=== PATIENT | male | born 1970 | race Caucasian/White ===

== ENCOUNTER 2018-09-08 09:06 | Inpatient (IN) | payer OTHER ==
[2018-09-08 09:22] VITALS: BMI 28.8
--- NOTE | 2018-09-08 09:31 | CT ---
Date of service: 09/08/2018 PROCEDURE: CT HEAD WITHOUT CONTRAST. HISTORY: AMS COMPARISON: None available. TECHNIQUE: Axial computed tomography images were obtained through the head/brain without intravenous contrast. Radiation dose: Total exam DLP = 1098.24 mGy-cm. This CT exam was performed using one or more of the following dose reduction techniques: Automated exposure control, adjustment of the mA and/or kV according to patient size, and/or use of iterative reconstruction technique. FINDINGS: HEMORRHAGE: No intracranial hemorrhage. BRAIN: Normal esteban-white matter differentiation and density are appreciated throughout the cerebrum and cerebellum with the brainstem appearing unremarkable as well. There is no mass effect. There is no suspicious extra-axial fluid collection and the midline brain anatomy appears diffusely unremarkable. VENTRICLES: Unremarkable. No hydrocephalus. CALVARIUM: No destructive bony lesion or displaced fracture identified including through the skullbase. PARANASAL SINUSES: Unremarkable as visualized. No significant inflammatory changes. MASTOID AIR CELLS: Unremarkable as visualized. No inflammatory changes. OTHER FINDINGS: None. IMPRESSION: Unremarkable unenhanced head CT. Findings discussed with Dr. No with written down and read back verification 09/08/2018 9:24 a.m..
[2018-09-08 09:37] LABS: BASO % 0.4 % (0.0-2.0); EOS # 0.1 K/uL (0.0-0.7); EOS % 2.3 % (0.0-4.0); HEMOGLOBIN 15.2 g/dL (12.0-18.0); LYMPH # 2.1 K/uL (1.0-4.3); LYMPH % 37.6 % (20.0-40.0); MEAN CELL VOLUME 85.3 fl (80.0-94.0); MEAN CORPUSCULAR HEMOGLOBIN 30.1 pg (27.0-31.0); MEAN CORPUSCULAR HGB CONC 35.3 g/dL (33.0-37.0); MEAN PLATELET VOLUME 8.2 fl (7.2-11.7); MONO # 0.6 K/uL (0.0-0.8); NEUT # 2.8 K/uL (1.8-7.0); NEUT % 49.7 % (50.0-75.0); NRBC % 0.2 % (0.0-0.0); RBC 5.07 Mil/uL (4.40-5.90); RED CELL DISTRIBUTION WIDTH 12.9 % (11.5-14.5); WHITE BLOOD COUNT 5.7 K/uL (4.8-10.8)
--- NOTE | 2018-09-08 09:41 | ED PDOC ---
HPI:STROKE - Time Time: 09:10 - Historian Historian: Patient, Spouse (), EMS - Chief Complaint Chief Complaint: Arm weakness (Right), other (Difficulty in speech) - Onset Date: 09/08/18 Time: 08:00 (Possibly had when woke up) - Timing Timing: Improved - Location Locate right:: Upper extremity - TPA Positive for Contraindication: No Reason tPA is not being Administered: Quick resolution of symptoms and minor NIH score of 1 and unknown onset - Notes: Notes:: 48 years old male brought in by EMS for possible stroke. Patient report he woke up around 8 am and states he is not sure of he had these complaints but according to him and his he went to the bathroom where he had difficulty in speech and weakness in right arm [employer]. PMD: Jarvis R[place] in [place] NIHSS Stroke Scale - Date/Time Evaluation Performed Date Performed: 09/08/18 Time Performed: 09:10 When Was NIHSS Performed: Code Stroke - How Severe is the Stroke Level of Consciousness: 0=Alert LOC to Questions: 0=Both comments correct LOC to commands: 0=Obeys both correctly Best Gaze: 0=Normal Visual: 0=No visual loss Facial: 0=Normal Motor Arm - Left: 0=No drift Motor Arm - Right: 0=No drift Motor Leg - Left: 0=No drift Motor Leg - Right: 0=No drift Limb Ataxia: 0=Absent Sensory: 0=Normal Best Language: 0=No aphasia Dysarthia: 1=Mild to moderate slurring Extinction & Inattention (Neglect): 0=Normal, no object Score: 1 NIHSS Stroke Scale 2 - Date/Time Evaluation Performed Date Performed: 09/08/18 Time Performed: 12:30 When Was NIHSS Performed: Code Stroke Re-evaluation - How Severe is the Stroke Level of Consciousness: 0=Alert LOC to Questions: 0=Both comments correct LOC to commands: 0=Obeys both correctly Best Gaze: 0=Normal Visual: 0=No visual loss Facial: 0=Normal Motor Arm - Left: 0=No drift Motor Arm - Right: 0=No drift Motor Leg - Left: 0=No drift Motor Leg - Right: 0=No drift Limb Ataxia: 0=Absent Sensory: 0=Normal Best Language: 1=Mild to moderate aphasia Dysarthia: 1=Mild to moderate slurring Extinction & Inattention (Neglect): 0=Normal, no object Score: 2 rTPA Inclusion/Exclusion - Refusal of Treatment Patient Refused Treatment: No - Inclusion Criteria for Altepase Patient is 18 years or Older: No The Clinical Diagnosis of Ischemic Stroke That is Causing a Potentially Disabling Neurological Deficit: No Time of Onset is Well Established to be Less Than 270 Minute Before Treatment Would Begin: No Risk/Benefit Discussed With Patient/Family Member Present: Yes Past Medical History Reviewed: Historical Data, Nursing Documentation, Vital Signs Vital Signs: Last Vital Signs Temp 98.3 F 09/08/18 09:09 Pulse 106 H 09/08/18 09:32 Resp 15 09/08/18 09:32 BP 160/79 H 09/08/18 09:32 Pulse Ox 97 09/08/18 09:32 - Medical History PMH: No Chronic Diseases - Surgical History Surgical History: No Surg Hx - Family History Family History: States: Unknown Family Hx - Home Medications Home Medications: Ambulatory Orders Medication Instructions Recorded RX: No Known Home Med 09/08/18 - Allergies Allergies/Adverse Reactions: Allergies Allergy/AdvReac Type Severity Reaction Status Date / Time No Known Allergies Allergy Verified 09/08/18 09:13 Review of Systems ROS Statement: Except As Marked, All Systems Reviewed And Found Negative Neurological: Positive for: Weakness (to right arm), Change in Speech (difficulty in speech) Physical Exam - Reviewed Nursing Documentation Reviewed: Yes Vital Signs Reviewed: Yes - Physical Exam Appears: Positive for: Well, No Acute Distress Head Exam: Positive for: ATRAUMATIC, NORMOCEPHALIC Skin: Positive for: Normal Color, Warm, Dry Eye Exam: Positive for: Normal appearance, EOMI, PERRL Neck: Positive for: Normal, Painless ROM, Supple Cardiovascular/Chest: Positive for: Regular Rate, Rhythm. Negative for: Murmur Respiratory: Positive for: Normal Breath Sounds. Negative for: Respiratory Distress Gastrointestinal/Abdominal: Positive for: Normal Exam, Soft. Negative for: Tenderness Back: Positive for: Normal Inspection. Negative for: L CVA Tenderness, R CVA Tenderness Extremity: Positive for: Normal ROM. Negative for: Pedal Edema, Swelling Neurologic/Psych: Positive for: Alert, Oriented (x3) - Laboratory Results Result Diagrams: 09/08/18 09:27 09/08/18 09:27 - ECG O2 Sat by Pulse Oximetry: 97 (RA) Pulse Ox Interpretation: Normal - Critical Care Total Time (In Min): 60 Medical Decision Making Medical Decision Making: Time: 914 Initial Impression: Acute CVA. Initial Plan: --Type and screen --CT Angio Head & Neck Vundle --CT Head W/O Contrast --EKg --Alcohol Serum --CMP --Drug screen --Hemoglobin --Lipid panel --Troponin --CBC --PTT --PT --Chest X-Ray --NaCl 1,000 ml IV 100 mls/hr 0925 Dr. Lara, the radiologist, called saying he read the CT and it is negative. 0928 CT Head FINDINGS: HEMORRHAGE: No intracranial hemorrhage. BRAIN: Normal esteban-white matter differentiation and density are appreciated throughout the cerebrum and cerebellum with the brainstem appearing unremarkable as well. There is no mass effect. There is no suspicious extra-axial fluid collection and the midline brain anatomy appears diffusely unremarkable. VENTRICLES: Unremarkable. No hydrocephalus. CALVARIUM: No destructive bony lesion or displaced fracture identified including through the skullbase. PARANASAL SINUSES: Unremarkable as visualized. No significant inflammatory changes. MASTOID AIR CELLS: Unremarkable as visualized. No inflammatory changes. OTHER FINDINGS: None. IMPRESSION: Unremarkable unenhanced head CT. Findings discussed with Dr. No with written down and read back verification 09/08/2018 9:24 a.m. [address] Coronel, neurologist cinder block mason, discussed case, NIH score and CT findings with her. According to Dr. Coronel, patient is not a TPA candidate due to quick resolution of symptoms and minor NIH score of 1. 1212 CT Angio Head and Neck FINDINGS: INTERNAL CEREBRAL ARTERIES: Unremarkable. The skull base, petrous, cavernous and supraclinoid segments are bilaterally widely patent. ANTERIOR CEREBRAL ARTERIES: The right A1 JOSSE appears hypoplastic but patent. The left A1 JOSSE is robust in caliber with good contrast opacification appreciated patent throughout. Anterior communicating artery appears patent with symmetric appearing A2 JOSSE branches bilaterally. MIDDLE CEREBRAL ARTERIES: Unremarkable. M1 and M2 segments are widely patent. Perisylvian branches grossly symmetric. POSTERIOR CIRCULATION: Basilar Artery: Unremarkable. Distal Vertebral Arteries: Unremarkable. Posterior Cerebral Arteries: Unremarkable. Posterior Inferior Cerebellar Arteries: Unremarkable. NECK CTA: Common Carotid arteries: The bilateral common carotid appear widely patent from their origins to their bifurcations with no significant stenosis appreciated. No evidence to suggest common carotid artery dissection. Internal Carotid arteries: No significant stenosis is appreciated throughout the cervical internal carotid artery segments bilaterally and there is no evidence of dissection either. External Carotid arteries: Appear unremarkable bilaterally. Vertebral arteries: The bilateral vertebral arteries appear normal in caliber from their origins to their distal cervical segments. No significant stenosis or definite pattern of dissection. ANEURYSM/ VASCULAR MALFORMATIONS: None. OTHER FINDINGS: None. IMPRESSION: 1. Hypoplastic but patent right A1 JOSSE with bilateral A2 JOSSE segments symmetric and patent. Widely patent dominant left A2 JOSSE. Patent anterior communicating artery. Remainder of the intracranial MR angiogram appears unremarkable with no occlusion or significant stenosis appreciable. 2. Unremarkable CTA neck. 1230 Called code stroke for worsening of dysarthria and mild aphasia. NIH SS is [address] head is ordered. [address] Coronel, she agreed and recommended TPA. 1253 Spoke to Martin, who states the CT is negative. 1254 CT Head FINDINGS: HEMORRHAGE: No acute intracranial hemorrhage. BRAIN: No mass effect or edema. No atrophy or chronic microvascular ischemic changes. VENTRICLES: Unremarkable. No hydrocephalus. CALVARIUM: Unremarkable. PARANASAL SINUSES: Unremarkable as visualized. No significant inflammatory changes. MASTOID AIR CELLS: Unremarkable as visualized. No inflammatory changes. OTHER FINDINGS: None. IMPRESSION: Normal CT of the Head. No evidence of acute CVA. No intracranial mass or hemorrhage. The findings in this examination were discussed by telephone with Dr. Bakari sanches at 12:53 p.m. on 09/08/2018. 1300 TPA was administered as bolus and infusion Scribe Attestation: Documented by Rochelle Chong, acting as a scribe for Ayo No MD. Provider Scribe Attestation: All medical record entries made by the Scribe were at my direction and personally dictated by me. I have reviewed the chart and agree that the record accurately reflects my personal performance of the history, physical exam, medical decision making, and the department course for this patient. I have also personally directed, reviewed, and agree with the discharge instructions and disposition. Disposition - Clinical Impression Clinical Impression: Acute CVA (cerebrovascular accident) - Patient ED Disposition Is Patient to be Admitted: Yes Discussed With Dr.: Maninder Sanders Doctor Will See Patient In The: Hospital Counseled Patient/Family Regarding: Studies Performed, Diagnosis - Disposition Disposition Time: 13:00 Condition: CRITICAL - Pt Status Changed To: Hospital Disposition Of: Inpatient - Admit Certification Admit to Inpatient:: After my assessment, the patient will require hospitalization for at least two midnights. This is because of the severity of symptoms shown, intensity of services needed, and/or the medical risk in this patient being treated as an outpatient. - POA Present On Arrival: None
[2018-09-08 09:44] LABS: PROTHROMBIN TIME 11.9 Seconds (9.8-13.1)
[2018-09-08] MEDS ORDERED: Iodixanol 320 MG/ML 100 ML BOTTLE IV ONE (09:44)
[2018-09-08] MEDS ORDERED: Sodium Chloride 0.9% 50 ML IV ONE (09:44)
[2018-09-08 09:48] LABS: ALB/GLOB RATIO 1.4 (1.0-2.1); ALBUMIN 4.4 g/dL (3.5-5.0); ALT/SGPT 36 U/L (21-72); AST/SGOT 27 U/L (17-59); BLOOD UREA NITROGEN 13 mg/dl (9-20); CALCIUM 9.5 mg/dL (8.4-10.2); GFR NON-AFRICAN AMERICAN > 60; HDL CHOLESTEROL 43 MG/DL (30-70)
[2018-09-08] MEDS: Sodium Chloride 0.9% 1,000 ML IV SCH (09:58)
[2018-09-08 09:59] LABS: LDL CHOLESTEROL 124 mg/dL (0-129)
[2018-09-08 12:14] LABS: BARBITURATES, UR NEGATIVE (NEGATIVE); BENZODIAZEPINES, UR NEGATIVE (NEGATIVE); OPIATES, UR NEGATIVE (NEGATIVE); PHENCYCLIDINE, UR NEGATIVE (NEGATIVE)
--- NOTE | 2018-09-08 12:16 | CT ---
Date of service: 09/08/2018 PROCEDURE: CT Angiography of the Brain. HISTORY: head neck CVA COMPARISON: None available. TECHNIQUE: CT angiography of the head and neck was performed following intravenous contrast administration. Coronal and sagittal maximum intensity projection reformatted images were generated. Contrast Dose: Visipaque 320, 100 cc Radiation dose: Total exam DLP = 515.26 mGy-cm. This CT exam was performed using one or more of the following dose reduction techniques: Automated exposure control, adjustment of the mA and/or kV according to patient size, and/or use of iterative reconstruction technique. FINDINGS: INTERNAL CEREBRAL ARTERIES: Unremarkable. The skull base, petrous, cavernous and supraclinoid segments are bilaterally widely patent. ANTERIOR CEREBRAL ARTERIES: The right A1 JOSSE appears hypoplastic but patent. The left A1 JOSSE is robust in caliber with good contrast opacification appreciated patent throughout. Anterior communicating artery appears patent with symmetric appearing A2 JOSSE branches bilaterally. MIDDLE CEREBRAL ARTERIES: Unremarkable. M1 and M2 segments are widely patent. Perisylvian branches grossly symmetric. POSTERIOR CIRCULATION: Basilar Artery: Unremarkable. Distal Vertebral Arteries: Unremarkable. Posterior Cerebral Arteries: Unremarkable. Posterior Inferior Cerebellar Arteries: Unremarkable. NECK CTA: Common Carotid arteries: The bilateral common carotid appear widely patent from their origins to their bifurcations with no significant stenosis appreciated. No evidence to suggest common carotid artery dissection. Internal Carotid arteries: No significant stenosis is appreciated throughout the cervical internal carotid artery segments bilaterally and there is no evidence of dissection either. External Carotid arteries: Appear unremarkable bilaterally. Vertebral arteries: The bilateral vertebral arteries appear normal in caliber from their origins to their distal cervical segments. No significant stenosis or definite pattern of dissection. ANEURYSM/ VASCULAR MALFORMATIONS: None. OTHER FINDINGS: None. IMPRESSION: 1. Hypoplastic but patent right A1 JOSSE with bilateral A2 JOSSE segments symmetric and patent. Widely patent dominant left A2 JOSSE. Patent anterior communicating artery. Remainder of the intracranial MR angiogram appears unremarkable with no occlusion or significant stenosis appreciable. 2. Unremarkable CTA neck.
--- NOTE | 2018-09-08 12:41 | CP.PCM.PCO ---
Physician Communication Note - Physician Communication Note Physician Communication Note: patient in last 10 minutes with now acute aphasia and dysarthria. TPA
--- NOTE | 2018-09-08 12:57 | CT ---
Date of service: 09/08/2018 PROCEDURE: CT HEAD WITHOUT CONTRAST. HISTORY: CVA COMPARISON: None available. TECHNIQUE: Axial computed tomography images were obtained through the head/brain without intravenous contrast. Radiation dose: Total exam DLP = 1091.85 mGy-cm. This CT exam was performed using one or more of the following dose reduction techniques: Automated exposure control, adjustment of the mA and/or kV according to patient size, and/or use of iterative reconstruction technique. FINDINGS: HEMORRHAGE: No acute intracranial hemorrhage. BRAIN: No mass effect or edema. No atrophy or chronic microvascular ischemic changes. VENTRICLES: Unremarkable. No hydrocephalus. CALVARIUM: Unremarkable. PARANASAL SINUSES: Unremarkable as visualized. No significant inflammatory changes. MASTOID AIR CELLS: Unremarkable as visualized. No inflammatory changes. OTHER FINDINGS: None. IMPRESSION: Normal CT of the Head. No evidence of acute CVA. No intracranial mass or hemorrhage. The findings in this examination were discussed by telephone with Dr. Bakari sanches at 12:53 p.m. on 09/08/2018.
--- NOTE | 2018-09-08 14:43 | CP.PCM.HP ---
<Mehrdad Sawyer - Last Filed: 09/08/18 18:32> History of Present Illness - History of Present Illness History of Present Illness: This is 48 y/o male with no significant PMH admitted to [facility] for evaluation and treatment of Acute Stroke/CVA. As per , patient woke up this morning and walked to bathroom and started c/o weakness and noticed aphasia so she called 911. reports patient was in his usual state of health a night before, no acute event. In ER patient got more Aphasic and dysarthria noted. Patient was started on TPA after counsulted with Dr. Coronel, neurologist. Patient denies any chest pain, SOB, dizziness, abdominal pain, palpitations or dysuria. is reporting right facial drooping. PMH: Denies PSH: No major surgeries Allg: NKDA Meds: none FH: Dad: + Stroke and DM, mother with HTN and DM SH: Denies smoking or illicit drug use, Social Alcohol use ROS: As per HPI Present on Admission - Present on Admission Any Indicators Present on Admission: No Review of Systems - Constitutional Constitutional: absent: Anorexia - EENT Eyes: absent: Blurred Vision, Diplopia, Itchy Eyes, Other Visual Disturbances Ears: absent: Ear Discharge, Disequilibrium, Dizziness Nose/Mouth/Throat: absent: Nasal Congestion, Nasal Discharge - Cardiovascular Cardiovascular: absent: Chest Pain, Chest Pain at Rest, Claudication - Respiratory Respiratory: absent: Cough, Dyspnea, Hemoptysis - Gastrointestinal Gastrointestinal: absent: Abdominal Pain - Genitourinary Genitourinary: absent: Change in Urinary Stream - Neurological Neurological: Focal Weakness. absent: Abnormal Gait, Abnormal Hearing, Abnormal Movements, Burning Sensations, Confusion, Disequilibrium - Psychiatric Psychiatric: absent: Anxiety - Endocrine Endocrine: Change in Body Appearance Past Patient History - Past Social History Smoking Status: Unknown If Ever Smoked - CARDIAC Hx Cardiac Disorders: No - PULMONARY Hx Respiratory Disorders: No - NEUROLOGICAL Hx Neurological Disorder: No - HEENT Hx HEENT Problems: No - RENAL Hx Chronic Kidney Disease: No - ENDOCRINE/METABOLIC Hx Endocrine Disorders: No - HEMATOLOGICAL/ONCOLOGICAL Hx Blood Disorders: No - INTEGUMENTARY Hx Dermatological Problems: Yes - MUSCULOSKELETAL/RHEUMATOLOGICAL Hx Musculoskeletal Disorders: No - GENITOURINARY/GYNECOLOGICAL Hx Genitourinary Disorders: No - PSYCHIATRIC Hx Psychophysiologic Disorder: No - SURGICAL HISTORY Hx Surgeries: No Meds Allergies/Adverse Reactions: Allergies Allergy/AdvReac Type Severity Reaction Status Date / Time No Known Allergies Allergy Verified 09/08/18 09:13 Physical Exam - Constitutional Appears: No Acute Distress - Head Exam Head Exam: NORMAL INSPECTION - Eye Exam Eye Exam: EOMI, Normal appearance, PERRL Pupil Exam: NORMAL ACCOMODATION - ENT Exam ENT Exam: Mucous Membranes Moist - Neck Exam Neck exam: Positive for: Normal Inspection - Respiratory Exam Respiratory Exam: Clear to Auscultation Bilateral, NORMAL BREATHING PATTERN. absent: Rhonchi, Wheezes, Respiratory Distress - Cardiovascular Exam Cardiovascular Exam: REGULAR RHYTHM, +S1, +S2 - GI/Abdominal Exam GI & Abdominal Exam: Normal Bowel Sounds, Soft. absent: Tenderness - Extremities Exam Extremities exam: Positive for: full ROM, normal inspection, pedal pulses present. Negative for: calf tenderness, tenderness - Back Exam Back exam: NORMAL INSPECTION. absent: CVA tenderness (L), CVA tenderness (R) - Expanded Neurological Exam Expanded Patient oriented to: person, place, time Speech: Expressive Aphasia, Slurred Speech Cranial nerves: EOM's Intact: Normal, Facial Sensation: Normal, Gag Reflex: Normal, Nystagmus: Normal, Tongue Deviation: Normal Cerebellar Function: Finger to Nose: Normal Sensory exam: Lower Extremity 2 Point Discrimination: Normal Neuro motor strength exam: Left Upper Extremity: 5, Right Upper Extremity: 5, Left Lower Extremity: 5, Right Lower Extremity: 5 Coma Scale Motor Response: OBEYS COMMANDS Coma Scale Verbal: Oriented - Psychiatric Exam Psychiatric exam: Flat Affect - Skin Skin Exam: Normal Color Results - Vital Signs Recent Vital Signs: Last Vital Signs Temp 98.3 F 09/08/18 09:09 Pulse 110 H 09/08/18 14:30 Resp 20 09/08/18 14:30 BP 146/92 H 09/08/18 14:30 Pulse Ox 98 09/08/18 14:30 - Labs Result Diagrams: 09/08/18 09:27 09/08/18 09:27 Labs: Laboratory Results - last 24 hr 09/08/18 09/08/18 09/08/18 09:13 09:27 09:27 WBC 5.7 RBC 5.07 Hgb 15.2 Hct 43.2 MCV 85.3 MCH 30.1 MCHC 35.3 RDW 12.9 Plt Count 249 MPV 8.2 Neut % (Auto) 49.7 L Lymph % (Auto) 37.6 [place] % (Auto) 10.0 Eos % (Auto) 2.3 Baso % (Auto) 0.4 Neut # (Auto) 2.8 Lymph # (Auto) 2.1 [place] # (Auto) 0.6 Eos # (Auto) 0.1 Baso # (Auto) 0.0 PT INR APTT Sodium 140 Potassium 3.8 Chloride 101 Carbon Dioxide 25 Anion Gap 18 BUN 13 Creatinine 1.1 Est GFR ( Amer) > 60 Est GFR (Non-Af Amer) > 60 POC Glucose (mg/dL) 97 Random Glucose 110 Calcium 9.5 Total Bilirubin 0.7 AST 27 ALT 36 Alkaline Phosphatase 52 Troponin I < 0.0600 Total Protein 7.6 Albumin 4.4 Globulin 3.2 Albumin/Globulin Ratio 1.4 Triglycerides 117 Cholesterol 210 H LDL Cholesterol Direct 124 HDL Cholesterol 43 Urine Opiates Screen Urine Methadone Screen Ur Barbiturates Screen Ur Phencyclidine Scrn Ur Amphetamines Screen U Benzodiazepines Scrn U Oth Cocaine Metabols U Cannabinoids Screen Alcohol, Quantitative < 10 Blood Type Blood Type Confirm Antibody Screen BBK History Checked 09/08/18 09/08/18 09/08/18 09:27 09:27 10:59 WBC RBC Hgb Hct MCV MCH MCHC RDW Plt Count MPV Neut % (Auto) Lymph % (Auto) [place] % (Auto) Eos % (Auto) Baso % (Auto) Neut # (Auto) Lymph # (Auto) [place] # (Auto) Eos # (Auto) Baso # (Auto) PT 11.9 INR 1.0 APTT 34.0 Sodium Potassium Chloride Carbon Dioxide Anion Gap BUN Creatinine Est GFR ( Amer) Est GFR (Non-Af Amer) POC Glucose (mg/dL) Random Glucose Calcium Total Bilirubin AST ALT Alkaline Phosphatase Troponin I Total Protein Albumin Globulin Albumin/Globulin Ratio Triglycerides Cholesterol LDL Cholesterol Direct HDL Cholesterol Urine Opiates Screen Urine Methadone Screen Ur Barbiturates Screen Ur Phencyclidine Scrn Ur Amphetamines Screen U Benzodiazepines Scrn U Oth Cocaine Metabols U Cannabinoids Screen Alcohol, Quantitative Blood Type AB POSITIVE Blood Type Confirm AB POSITIVE Antibody Screen Negative BBK History Checked No verified bt 09/08/18 09/08/18 11:35 12:34 WBC RBC Hgb Hct MCV MCH MCHC RDW Plt Count MPV Neut % (Auto) Lymph % (Auto) [place] % (Auto) Eos % (Auto) Baso % (Auto) Neut # (Auto) Lymph # (Auto) [place] # (Auto) Eos # (Auto) Baso # (Auto) PT INR APTT Sodium Potassium Chloride Carbon Dioxide Anion Gap BUN Creatinine Est GFR ( Amer) Est GFR (Non-Af Amer) POC Glucose (mg/dL) 104 Random Glucose Calcium Total Bilirubin AST ALT Alkaline Phosphatase Troponin I Total Protein Albumin Globulin Albumin/Globulin Ratio Triglycerides Cholesterol LDL Cholesterol Direct HDL Cholesterol Urine Opiates Screen Negative Urine Methadone Screen Negative Ur Barbiturates Screen Negative Ur Phencyclidine Scrn Negative Ur Amphetamines Screen Negative U Benzodiazepines Scrn Negative U Oth Cocaine Metabols Negative U Cannabinoids Screen Negative Alcohol, Quantitative Blood Type Blood Type Confirm Antibody Screen BBK History Checked Assessment & Plan - Assessment and Plan (Free Text) Assessment: A/P: 48 y/o male with no significant PMH admitted to [facility] for evaluation and treatment of Acute Stroke/CVA Acute CVA, Aphasia, Code Stroke - NIHSS: 4 - EKG: Sinus tachy, see official report - Head CT x 2: Unremarkable unenhanced head CT - CT Angio Head and Neck: No acute changes - Consult, neurology - Start TPA - F/u MRA - F/u neuro recommendations - Start Aspirin and Lipitor - Maintain BP 140-160 systolic - AccuChecks - Neurocheks - Repeat CT in 24 hours - Admit to ICU DVT PPX: SCD <Sanders,Maninder K - Last Filed: 09/09/18 19:27> Results - Vital Signs Recent Vital Signs: Last Vital Signs Temp 97.6 F 09/09/18 16:00 Pulse 81 09/09/18 18:00 Resp 16 09/09/18 18:00 BP 119/73 09/09/18 18:00 Pulse Ox 96 09/09/18 18:00 - Labs Result Diagrams: 09/09/18 04:30 09/09/18 04:30 Labs: Laboratory Results - last 24 hr 09/08/18 09/09/18 09/09/18 22:03 04:30 04:30 WBC 5.6 RBC 4.88 Hgb 14.6 Hct 42.4 MCV 86.9 MCH 29.9 MCHC 34.4 RDW 13.0 Plt Count 217 MPV 8.3 Neut % (Auto) 62.0 Lymph % (Auto) 25.8 [place] % (Auto) 9.9 Eos % (Auto) 1.7 Baso % (Auto) 0.6 Neut # (Auto) 3.5 Lymph # (Auto) 1.5 [place] # (Auto) 0.6 Eos # (Auto) 0.1 Baso # (Auto) 0.0 PT INR APTT Sodium 139 Potassium 3.7 Chloride 102 Carbon Dioxide 25 Anion Gap 16 BUN 11 Creatinine 0.9 Est GFR ( Amer) > 60 Est GFR (Non-Af Amer) > 60 POC Glucose (mg/dL) 87 Random Glucose 90 Calcium 8.9 Total Bilirubin 0.6 AST 28 ALT 37 Alkaline Phosphatase 44 Total Protein 6.7 Albumin 3.8 Globulin 2.9 Albumin/Globulin Ratio 1.3 Vitamin B12 TSH 3rd Generation 2.02 09/09/18 09/09/18 09/09/18 04:30 05:19 07:29 WBC RBC Hgb Hct MCV MCH MCHC RDW Plt Count MPV Neut % (Auto) Lymph % (Auto) [place] % (Auto) Eos % (Auto) Baso % (Auto) Neut # (Auto) Lymph # (Auto) [place] # (Auto) Eos # (Auto) Baso # (Auto) PT 13.6 H INR 1.2 APTT 32.5 Sodium Potassium Chloride Carbon Dioxide Anion Gap BUN Creatinine Est GFR ( Amer) Est GFR (Non-Af Amer) POC Glucose (mg/dL) 86 Random Glucose Calcium Total Bilirubin AST ALT Alkaline Phosphatase Total Protein Albumin Globulin Albumin/Globulin Ratio Vitamin B12 354 TSH 3rd Generation 09/09/18 09/09/18 11:06 15:48 WBC RBC Hgb Hct MCV MCH MCHC RDW Plt Count MPV Neut % (Auto) Lymph % (Auto) [place] % (Auto) Eos % (Auto) Baso % (Auto) Neut # (Auto) Lymph # (Auto) [place] # (Auto) Eos # (Auto) Baso # (Auto) PT INR APTT Sodium Potassium Chloride Carbon Dioxide Anion Gap BUN Creatinine Est GFR ( Amer) Est GFR (Non-Af Amer) POC Glucose (mg/dL) 82 87 Random Glucose Calcium Total Bilirubin AST ALT Alkaline Phosphatase Total Protein Albumin Globulin Albumin/Globulin Ratio Vitamin B12 TSH 3rd Generation Assessment & Plan - Assessment and Plan (Free Text) Assessment: Patient was personally seen and examined by me in rounds with residents. Available labs and diagnostic data reviewed. Case, Patient's condition and management plan discussed with residents in rounds. Agree with resident's progress note. Plan: As ordered.
--- NOTE | 2018-09-08 16:20 | RAD ---
Date of service: 09/08/2018 HISTORY: Code Stroke COMPARISON: No prior. FINDINGS: LUNGS: No active pulmonary disease. PLEURA: No significant pleural effusion identified, no pneumothorax apparent. CARDIOVASCULAR: No aortic atherosclerotic calcification present. Normal cardiac size. No pulmonary vascular congestion. OSSEOUS STRUCTURES: No significant abnormalities. VISUALIZED UPPER ABDOMEN: Normal. OTHER FINDINGS: None. IMPRESSION: No acute cardiopulmonary disease appreciated.
--- NOTE | 2018-09-08 17:13 | MRI ---
Date of service: 09/08/2018 PROCEDURE: MRI BRAIN WITHOUT CONTRAST HISTORY: CVA COMPARISON: None available. TECHNIQUE: Multiplanar, multisequence MR images of the brain were obtained without intravenous contrast enhancement. FINDINGS: HEMORRHAGE: None DWI: There is an unusual pattern of restricted diffusion affecting the cortex only of the inferior left frontal parietal junction anteriorly. Punctate areas of restricted diffusion are identified affecting foci at the left frontal lobe and basal ganglia suggestive of small acute or subacute infarcts. BRAIN PARENCHYMA: Subtle increased long TR signal is seen at the cortex of the frontal parietal junction best seen in image 14 series 4, the FLAIR axial sequence which corresponds to diffusion-weighted signal abnormality. This is corroborated by sagittal FLAIR images 162 through 146 series 5. Solitary nonspecific area of punctate white matter signal abnormality is seen at the right frontal lobe superiorly with otherwise normal signal throughout the remainder of the brain including the posterior fossa contents. No mass effect. VENTRICLES: Unremarkable. No hydrocephalus. CRANIUM: Unremarkable. ORBITS: Grossly unremarkable. PARANASAL SINUSES/MASTOIDS: Clear VASCULAR SYSTEM: Skull base flow voids intact. OTHER FINDINGS: None. IMPRESSION: Findings most compatible with limited ischemia involving the left frontal and frontoparietal distribution as discussed above although no mass-effect is appreciated at this time. Clinically correlate further as the unusual gyriform pattern of restricted diffusion at the inferior left frontal parietal junction is unusual and felt to reflect ischemia. Infectious or inflammatory change is the differential diagnosis. Consider follow-up contrast MRI for added characterization.
--- NOTE | 2018-09-08 17:14 | MRI ---
Date of service: 09/08/2018 PROCEDURE: MR Angiography of the neck without contrast HISTORY: CVA COMPARISON: None available. TECHNIQUE: 3D [id number] angiography of the neck was performed. Rotating maximum intensity projection images of the cervical carotid and vertebral arteries were generated. The origins of the common carotid arteries were not visualized, which is a limitation inherent to the non-contrast time of flight technique. FINDINGS: RIGHT CAROTID ARTERIES: Common Carotid Artery: Normal. Carotid Bifurcation: Normal. Internal Carotid Artery:Normal. External Carotid Artery (proximal branches): Normal. LEFT CAROTID ARTERIES: Common Carotid Artery: Normal. Carotid Bifurcation: Normal. Internal Carotid Artery:Normal. External Carotid Artery (proximal branches): Normal. VERTEBRAL ARTERIES: Right Vertebral Artery: Normal. Left Vertebral Artery: Normal. OTHER FINDINGS: None. IMPRESSION: Normal MR Angiography of the neck.
--- NOTE | 2018-09-08 17:16 | MRI ---
Date of service: 09/08/2018 PROCEDURE: Magnetic Resonance Angiography Brain HISTORY: CVA COMPARISON: None available. TECHNIQUE: 3D time of flight MR angiography of the intracranial arteries was performed. Rotating maximum intensity projection images were generated. FINDINGS: INTERNAL CAROTID ARTERIES: Unremarkable. The skull base, petrous, cavernous and supraclinoid segments are bilaterally widely patient. ANTERIOR CEREBRAL ARTERIES: Unremarkable. A1 and A2 segments are widely patent. Smaller distal branches unremarkable, as visualized. MIDDLE CEREBRAL ARTERIES: Unremarkable. M1 and M2 segments are widely patent. Perisylvian branches grossly symmetric. POSTERIOR CIRCULATION: Basilar Artery: Unremarkable. Distal Vertebral Arteries: Right dominant vertebrobasilar circulation. Posterior Cerebral Arteries: Unremarkable. Posterior Inferior Cerebellar Arteries: Unremarkable. ANEURYSM/ VASCULAR MALFORMATIONS: None. OTHER FINDINGS: None. IMPRESSION: Unremarkable MR angiography of the brain.
--- NOTE | 2018-09-08 19:07 | CARD ---
APPROVED REPORT Date of service: 09/08/2018 EKG Measurement Heart [id number] <Conclusion> Sinus tachycardia Incomplete right bundle branch block Possible Inferior infarct, age undetermined Abnormal ECG
[2018-09-09 06:34] LABS: INR 1.2; PROTHROMBIN TIME 13.6 Seconds (9.8-13.1)
[2018-09-09 06:36] LABS: PARTIAL THROMBOPLASTIN TIME 32.5 Seconds (25.6-37.1)
[2018-09-09 06:37] LABS: BASO % 0.6 % (0.0-2.0); EOS # 0.1 K/uL (0.0-0.7); EOS % 1.7 % (0.0-4.0); HEMOGLOBIN 14.6 g/dL (12.0-18.0); LYMPH # 1.5 K/uL (1.0-4.3); LYMPH % 25.8 % (20.0-40.0); MEAN CELL VOLUME 86.9 fl (80.0-94.0); MEAN CORPUSCULAR HEMOGLOBIN 29.9 pg (27.0-31.0); MEAN CORPUSCULAR HGB CONC 34.4 g/dL (33.0-37.0); MEAN PLATELET VOLUME 8.3 fl (7.2-11.7); MONO # 0.6 K/uL (0.0-0.8); MONO % 9.9 % (0.0-10.0); NEUT # 3.5 K/uL (1.8-7.0); NRBC % 0.1 % (0.0-0.0); RBC 4.88 Mil/uL (4.40-5.90); WHITE BLOOD COUNT 5.6 K/uL (4.8-10.8)
[2018-09-09 06:59] LABS: ALB/GLOB RATIO 1.3 (1.0-2.1); ALBUMIN 3.8 g/dL (3.5-5.0); ALT/SGPT 37 U/L (21-72); AST/SGOT 28 U/L (17-59); BLOOD UREA NITROGEN 11 mg/dl (9-20); CALCIUM 8.9 mg/dL (8.4-10.2); GFR NON-AFRICAN AMERICAN > 60
[2018-09-09] MEDS: Sodium Chloride 0.9% 1,000 ML IV SCH ×2 (07:00→09:20)
--- NOTE | 2018-09-09 08:35 | CON ---
DATE: 09/08/2018 CRITICAL CARE CONSULT NOTE LOCATION: The patient in ICU, bed 435. TIME SPENT: 40 minutes. The patient is seen and evaluated at the bedside. Past medical, surgical, social, and family history reviewed. Events in the ER noted and discussed with the ER physician. HISTORY OF PRESENT ILLNESS: A 48-year-old moderately obese male with no significant medical history in the past, only recent visit to [place] a month ago when he felt numbness and tingling of his left arm and left trunk after having had a drink from a local shop. He subsequently recovered and has not been having any difficulty with speech or with mobility. The patient went to bed last night, but this morning, felt heaviness on his right arm and right leg, went to bathroom. While in bathroom, felt dizzy, called , brought to emergency room. In ER, the patient was noted to have slight slurring of speech. Otherwise, unremarkable. Initial CT head was negative. However, during the course, the patient developed progressively worsening dysarthria. In consultation with Neurology, the patient was started on tPA, completed, admitted to ICU for further observation. The patient currently remains alert, awake, follows commands appropriate. Exam is unremarkable except for mild dysarthria. PHYSICAL EXAMINATION: VITAL SIGNS: Temperature 98.3, heart rate 93, blood pressure 145/89, respiratory rate of 20 thoracoabdominal, saturation 100%. HEAD, EYES, EARS, NOSE, AND THROAT: Pupils are reactive. Conjunctivae pink. Sclerae are white. NECK: Supple. Trachea is central. CHEST: Bilateral breath sounds. Clear to auscultation. HEART: Rhythm regular. S1, S2 normal intensity. No S3, S4, or gallop. No audible murmur. ABDOMEN: Bowel sounds present. Soft. Liver and spleen not palpable. Bladder not distended. EXTREMITIES: Without clubbing, cyanosis, or edema. NEUROLOGIC EXAMINATION: No cranial nerve deficit. Mild dysarthria. Mild right facial droop. No sensory impairment. Plantar equivocal. CURRENT MEDICATIONS: Include aspirin 81 mg daily, Lipitor 20 mg p.o. daily, sodium chloride 100 mL/hour. LABORATORY DATA: WBC 5.7, hemoglobin 15.2, hematocrit 43.2, platelet count 249, neutrophils 49.7, lymphocytes 37.6, monocytes 10. PT 11.9, INR 1, PTT 34. SMA-7: Sodium 140, potassium 3.8, chloride 101, CO2 of 25, blood urea nitrogen 13, creatinine 1.1, random glucose of 110, A1c 5.3, calcium 9.5, total bilirubin 0.7, AST 27, ALT 36, alkaline phosphatase 52. Troponin less than 0.06, total protein 7.6, albumin 4.4, triglycerides 117, cholesterol 210, LDL 124, HDL of 43. Urine drug screen negative. Alcohol level less than 10. Initial CT head negative. Repeat CTA head and neck hypoplastic but patent right A1 JOSSE with bilateral A2 JOSSE segments symmetric and patent, widely patent and dominant left A2 JOSSE, patent anterior communicating artery. Remainder of the intracranial MR angiogram appears unremarkable. MRI of brain, subtle increasing long TR signal at the context of the frontoparietal junction, best seen in the image 40. The prior axial which corresponds diffuse weighted signal abnormality, solitary nonspecific area, punctate white matter signal, abnormal at the right frontal lobe superiorly, otherwise, unremarkable. MRA of the head, unremarkable MR angiography of the brain. MRA of the neck, normal angiography of the neck. IMPRESSION: A 48-year-old male with no significant medical history in the past, admitted with recurrent stuttering dysarthria, status post tissue plasminogen activator. Neuro imaging shows diffusion affecting the cortex only of the inferior left frontoparietal junction anteriorly. Punctate areas showed restricted diffusion affecting at the left frontal lobe and basal ganglia, suggest a small acute or subacute infarct. We will closely monitor for hemodynamic stability. Maintain systolic pressure between 140 to 160, maintain blood sugar in 90 to 110. Monitor for any post tissue plasminogen activator complications. Laith Montano MD
--- NOTE | 2018-09-09 11:35 | CP.PCM.CON ---
History of Present Illness - History of Present Illness History of Present Illness: Neurology consult called by Dr. Moreno in ER as code stroke. 48 yr old male who was in his usual state of health until about 830 am when he developed sudden dysarthria, awkwardness and heaviness of right arm, followed by partial aphasia. He resolved partially to NIHSS of 2, and then about 10 am yesterday, he developed progressive aphasia and dysarthria. At this point, it was decided that he was a TPA candidate, and he was given TPA by Dr. Moreno in Er. His symptoms completely resolved after TPA administration, and he was transfer red to ICU. On my examination today, the patient only has minimal dysarthria, with NIHSS of 1. He has no headache, no weakness, no visual difficulties, no other complaints. CT head is thus far negative. MRI Brain shows the following: PMH/PSH: Past history of palpitations at rest, for which he saw compressor service technician and was told that he had ??something wrong with his mitral valve. No dm, no htn, no afib. FH/SH: Works in [email or web address] for [employer]. No tobacco, occasional etoh. All: nkda. On exam: AAOX3. PERRL. Cn 2-12 normal. MMS: 30/30 No facial asymmetry. Speech is mildly dysarthric, with naming and repetition intact. EOMI. motor: strength normal, sensory exam normal. Gait is normal. +2 dtr ul and ll bl. Toes downgoing. No clonus. No cerebellar signs noted. Review of Systems - Constitutional Constitutional: absent: As Per HPI, Anorexia, Chills, Daytime Sleepiness, Excessive Sweating, Fatigue, Fever, Frequent Falls, Headache, Increased Appetite, Lethargy, Malaise, Night Sweats, Snoring, Sleep Apnea, Weight Gain, Weight Loss, Weakness, Other - EENT Eyes: absent: As Per HPI, Blind Spots, Blurred Vision, Change in Vision, Decreased Night Vision, Diplopia, Discharge, Dry Eye, Exophthalmos, Floaters, Irritation, Itchy Eyes, Loss of Peripheral Vision, Pain, Photophobia, Requires Corrective Lenses, Sees Flashes, Spots in Vision, Tunnel Vision, Other Visual Disturbances, Loss of Vision, Other Ears: absent: As Per HPI, Decreased Hearing, Ear Discharge, Ear Pain, Tinnitus, Abnormal Hearing, Disequilibrium, Dizziness, Other Nose/Mouth/Throat: absent: As Per HPI, Epistaxis, Nasal Congestion, Nasal Discharge, Nasal Obstruction, Nasal Trauma, Nose Pain, Post Nasal Drip, Sinus Pain, Sinus Pressure, Bleeding Gums, Change in Voice, Dental Pain, Dry Mouth, Dysphagia, Halitosis, Hoarsness, Lip Swelling, Mouth Lesions, Mouth Pain, Odynophagia, Sore Throat, Throat Swelling, Tongue Swelling, Facial Pain, Neck P ain, Neck Mass, Other - Cardiovascular Cardiovascular: absent: As Per HPI, Acrocyanosis, Chest Pain, Chest Pain at Rest, Chest Pain with Activity, Claudication, Diaphoresis, Dyspnea, Dyspnea on Exertion, Edema, Irregular Heart Rhythm, Pain Radiating to Arm/Neck/Jaw, Leg Edema, Leg Ulcers, Lightheadedness, Orthopnea, Palpitations, Paroxysmal Nocturnal Dyspnea, Pedal Edema, Radiating Pain, Rapid Heart Rate, Slow Heart Rate, Syncope, Other - Respiratory Respiratory: absent: As Per HPI, Cough, Dyspnea, Hemoptysis, Dyspnea on Exertion, Wheezing, Snoring, Stridor, Pain on Inspiration, Chest Congestion, Excessive Mucous Production, Change in Mucous Color, Pain with Coughing, Other - Musculoskeletal Musculoskeletal: absent: As Per HPI, Abnormal Gait, Arthralgias, Atrophy, Back Pain, Deformity, Joint Swelling, Limited Range of Motion, Loss of Height, Muscle Cramps, Muscle Weakness, Myalgias, Neck Pain, Numbness, Radiating Pain into Limb, Stiffness, Tingling, Other - Neurological Neurological: absent: As Per HPI, Abnormal Gait, Abnormal Hearing, Abnormal Movements, Abnormal Speech, Behavioral Changes, Burning Sensations, Confusion, Convulsions, Disequilibrium, Dizziness, Numbness, Focal Weakness, Frequent Falls, Headaches, Lack of Coordination, Loss of Vision, Memory Loss, Paresthesias, Radicular Pain, Restless Legs, Sensory Deficit, Syncope, Tingling, Tremor, Vertigo, Weakness, Other Visual Disturbances, Other Past Patient History - Past Medical History & Family History Past Medical History?: Yes - Past Social History Smoking Status: Never Smoked - CARDIAC Hx Cardiac Disorders: No - PULMONARY Hx Respiratory Disorders: No - NEUROLOGICAL Hx Neurological Disorder: No - HEENT Hx HEENT Problems: No - RENAL Hx Chronic Kidney Disease: No - ENDOCRINE/METABOLIC Hx Endocrine Disorders: No - HEMATOLOGICAL/ONCOLOGICAL Hx Blood Disorders: No - INTEGUMENTARY Hx Dermatological Problems: Yes Other/Comment: hx of cancerous moles, pt has received light therapy over the last 3 or 4 years - MUSCULOSKELETAL/RHEUMATOLOGICAL Hx Musculoskeletal Disorders: No Hx Falls: No - GASTROINTESTINAL Hx Gastrointestinal Disorders: No - GENITOURINARY/GYNECOLOGICAL Hx Genitourinary Disorders: No - PSYCHIATRIC Hx Psychophysiologic Disorder: No Hx Substance Use: No - SURGICAL HISTORY Hx Surgeries: Yes Other/Comment: left elbow repair with hardware, then hardware was removed - ANESTHESIA Hx Anesthesia: Yes Hx Anesthesia Reactions: No Hx Malignant Hyperthermia: No Meds Allergies/Adverse Reactions: Allergies Allergy/AdvReac Type Severity Reaction Status Date / Time No Known Allergies Allergy Verified 09/08/18 09:13 - Medications Medications: Current Medications Acetaminophen (Tylenol 325mg Tab) 650 mg PO Q6H PRN PRN Reason: Fever >100.4 F Aspirin (Ecotrin) 81 mg PO DAILY [facility] Last Admin: 09/09/18 09:19 Dose: 81 mg Atorvastatin Calcium (Lipitor) 20 mg PO DAILY [facility] Last Admin: 09/09/18 09:19 Dose: 20 mg Sodium Chloride (Sodium Chloride 0.9%) 1,000 mls @ 100 mls/hr IV .Q10H [facility] Last Admin: 09/09/18 09:20 Dose: 100 mls/hr Ondansetron HCl (Zofran Inj) 4 mg IVP Q6H PRN PRN Reason: Nausea/Vomiting Physical Exam - Constitutional Appears: Non-toxic Results - Vital Signs Recent Vital Signs: Last Vital Signs Temp 98.1 F 09/09/18 08:00 Pulse 80 09/09/18 08:00 Resp 16 09/09/18 08:00 BP 123/83 09/09/18 08:00 Pulse Ox 95 09/09/18 08:00 - Labs Result Diagrams: 09/09/18 04:30 09/09/18 04:30 Labs: Laboratory Results - last 24 hr 09/08/18 09/08/18 09/08/18 09:27 10:59 11:35 WBC RBC Hgb Hct MCV MCH MCHC RDW Plt Count MPV Neut % (Auto) Lymph % (Auto) Cascade % (Auto) Eos % (Auto) Baso % (Auto) Neut # (Auto) Lymph # (Auto) Cascade # (Auto) Eos # (Auto) Baso # (Auto) PT INR APTT Sodium Potassium Chloride Carbon Dioxide Anion Gap BUN Creatinine Est GFR ( Amer) Est GFR (Non-Af Amer) POC Glucose (mg/dL) Random Glucose Hemoglobin A1c 5.3 Calcium Total Bilirubin AST ALT Alkaline Phosphatase Total Protein Albumin Globulin Albumin/Globulin Ratio Vitamin B12 TSH 3rd Generation Urine Opiates Screen Negative Urine Methadone Screen Negative Ur Barbiturates Screen Negative Ur Phencyclidine Scrn Negative Ur Amphetamines Screen Negative U Benzodiazepines Scrn Negative U Oth Cocaine Metabols Negative U Cannabinoids Screen Negative Blood Type Confirm AB POSITIVE 09/08/18 09/08/18 09/09/18 12:34 22:03 04:30 WBC 5.6 RBC 4.88 Hgb 14.6 Hct 42.4 MCV 86.9 MCH 29.9 MCHC 34.4 RDW 13.0 Plt Count 217 MPV 8.3 Neut % (Auto) 62.0 Lymph % (Auto) 25.8 Cascade % (Auto) 9.9 Eos % (Auto) 1.7 Baso % (Auto) 0.6 Neut # (Auto) 3.5 Lymph # (Auto) 1.5 Cascade # (Auto) 0.6 Eos # (Auto) 0.1 Baso # (Auto) 0.0 PT INR APTT Sodium Potassium Chloride Carbon Dioxide Anion Gap BUN Creatinine Est GFR ( Amer) Est GFR (Non-Af Amer) POC Glucose (mg/dL) 104 87 Random Glucose Hemoglobin A1c Calcium Total Bilirubin AST ALT Alkaline Phosphatase Total Protein Albumin Globulin Albumin/Globulin Ratio Vitamin B12 TSH 3rd Generation Urine Opiates Screen Urine Methadone Screen Ur Barbiturates Screen Ur Phencyclidine Scrn Ur Amphetamines Screen U Benzodiazepines Scrn U Oth Cocaine Metabols U Cannabinoids Screen Blood Type Confirm 09/09/18 09/09/18 09/09/18 04:30 04:30 05:19 WBC RBC Hgb Hct MCV MCH MCHC RDW Plt Count MPV Neut % (Auto) Lymph % (Auto) Cascade % (Auto) Eos % (Auto) Baso % (Auto) Neut # (Auto) Lymph # (Auto) Cascade # (Auto) Eos # (Auto) Baso # (Auto) PT 13.6 H INR 1.2 APTT 32.5 Sodium 139 Potassium 3.7 Chloride 102 Carbon Dioxide 25 Anion Gap 16 BUN 11 Creatinine 0.9 Est GFR ( Amer) > 60 Est GFR (Non-Af Amer) > 60 POC Glucose (mg/dL) 86 Random Glucose 90 Hemoglobin A1c Calcium 8.9 Total Bilirubin 0.6 AST 28 ALT 37 Alkaline Phosphatase 44 Total Protein 6.7 Albumin 3.8 Globulin 2.9 Albumin/Globulin Ratio 1.3 Vitamin B12 TSH 3rd Generation 2.02 Urine Opiates Screen Urine Methadone Screen Ur Barbiturates Screen Ur Phencyclidine Scrn Ur Amphetamines Screen U Benzodiazepines Scrn U Oth Cocaine Metabols U Cannabinoids Screen Blood Type Confirm 09/09/18 07:29 WBC RBC Hgb Hct MCV MCH MCHC RDW Plt Count MPV Neut % (Auto) Lymph % (Auto) Cascade % (Auto) Eos % (Auto) Baso % (Auto) Neut # (Auto) Lymph # (Auto) Cascade # (Auto) Eos # (Auto) Baso # (Auto) PT INR APTT Sodium Potassium Chloride Carbon Dioxide Anion Gap BUN Creatinine Est GFR ( Amer) Est GFR (Non-Af Amer) POC Glucose (mg/dL) Random Glucose Hemoglobin A1c Calcium Total Bilirubin AST ALT Alkaline Phosphatase Total Protein Albumin Globulin Albumin/Globulin Ratio Vitamin B12 354 TSH 3rd Generation Urine Opiates Screen Urine Methadone Screen Ur Barbiturates Screen Ur Phencyclidine Scrn Ur Amphetamines Screen U Benzodiazepines Scrn U Oth Cocaine Metabols U Cannabinoids Screen Blood Type Confirm - Imaging and Cardiology CT scan - head Status: Image reviewed by me, Report reviewed by me MRI - head Status: Image reviewed by me, Report reviewed by me (MRI Brain: shows subacute and acute infarcts in the left frontal lobe and basal ganglia. ) Additional comment: MRI brain shows multiple small infarcts in the left frontal lobe and basal ganglia. No hemorrhagic conversion noted. 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 We will admit MR. Watkins and initiate stroke workup. Plan; 1. Echo with bubble study 2. Start aspirin 325 mg po daily, and plavix 75 mg po daily in 36 hours. 3. factor 5 leiden, anti thrombin 3, fibringogen, protein c, protein s, h omocysteine, 4. Keep Bp at around 150-160/80 5. Neuro checks q [address] OT. Thank you Dr. Enrike Arnold MD DPN [facility]
--- NOTE | 2018-09-09 11:50 | PN ---
DATE: 09/09/2018 SUBJECTIVE: The patient seen and examined. Interim events noted. Consults noted and appreciated. Associate Professor Of Art History and Neurology intervention noted and appreciated. The patient remains in the Intensive Care Unit. The patient feels much better. . Normal speech and strength. No complaints of chest pain or shortness of breath. No weakness. PHYSICAL EXAMINATION: GENERAL: The patient is in no acute distress. VITAL SIGNS: Stable. HEART: S1 and S2. Normal and regular. LUNGS: Bilateral air exchange. ABDOMEN: Soft, nontender. EXTREMITIES: No edema. No calf tenderness. No acute ischemia. CENTRAL NERVOUS SYSTEM: The patient is alert, awake, and oriented x3. There is no sign of any acute gross focal motor or sensory neurological deficit. The patient's speech is unremarkable, improved and back to normal. ASSESSMENT: Overall, the patient is medically stable, has improved remarkably after TPA. Available diagnostic data reviewed. Telemetry monitoring does not reveal significant arrhythmia. The MRI is suggestive of acute cerebrovascular accident. MRA is unremarkable. PLAN: As ordered. Maninder Sanders MD
[2018-09-09] MEDS ORDERED: Sodium Chloride 0.9% 50 ML IV ONE (13:29)
[2018-09-09] MEDS ORDERED: Iodixanol 320 MG/ML 100 ML BOTTLE IV ONE (13:30)
--- NOTE | 2018-09-09 16:43 | PN ---
PROCEDURE DATE: 09/09/2018 LOCATION: The patient in ICU bed 435. TIME SPENT: 35 minutes. The patient is seen and evaluated at the bedside. Past medical, surgical, social history reviewed. SUBJECTIVE: This 48-year-old male with no significant medical history in the past presented with recurrent slurring of speech, status post tPA, admitted to ICU, overnight normotensive, afebrile. Telemetry sinus rhythm, weakness and slurring of speech improved. This morning alert, awake, follows commands appropriate, has no headache, shortness of breath, chest pain or palpitation. No abdominal discomfort. No diarrhea, no dysuria. Able to swallow food without signs and symptoms of aspiration. PHYSICAL EXAMINATION: VITAL SIGNS: Temperature 98.1, heart rate 80 and regular, blood pressure 123/83, mean arterial pressure 96, oxygen saturation 95. HEAD, EYES, EARS, NOSE AND THROAT: Pupils are reactive. Conjunctivae pink. Sclerae are white. NECK: Supple. Trachea central. CHEST: Bilateral breath sounds, clear to auscultation. HEART: Rhythm regular. S1, S2 normal. No S3, S4 gallop. No audible murmur. ABDOMEN: Bowel sounds present. Soft. Liver and spleen not palpable. Bladder not distended. EXTREMITIES: No clubbing, cyanosis or edema. NEUROLOGIC: No cranial nerve deficit, very minimal slurring of speech. No facial droop. No motor deficit. No sensory impairment. CURRENT MEDICATIONS: Aspirin 81 mg daily, Lipitor 20 mg p.o. daily Tylenol 650 every 6 hours p.r.n. LABORATORY DATA: WBC 5.6, hemoglobin 14.6, hematocrit 42.4, platelet count of 270, neutrophils 62, lymphocytes 25.8, monocytes 9.8. PT 13.6, INR 1.2, PTT 32.5. SMA-7: Sodium 139, potassium 3.7, chloride 102, CO2 of 25. Blood urea nitrogen 11, creatinine of 0.9, random glucose 90, calcium 8.9, total bilirubin 0.6, AST 28, ALT 37, alkaline phosphatase 44, total protein 6.7, albumin 3.8. Vitamin B12 of 354. TSH of 2.02. Alcohol level less than 10. Urine tox screen negative. MRI of brain, punctate areas of restricted diffusion identified among foci at the left frontal lobe and basal ganglia, suggestive of small acute or a subacute infarct. IMPRESSION: Status post acute cerebrovascular accident, status post tPA. Post-tPA course uneventful. Symptoms at presentation slurring and weakness of the right arm improved, minimal residual slurring of speech. Seen by Neurology consult. Awaiting for repeat CT scan of the head and echo with bubble study. We will advance the diet to heart healthy and continue aspirin 81 mg daily, Lipitor 20 mg daily. To be evaluated by speech therapist for further evaluation and management. Laith Montano MD
--- NOTE | 2018-09-09 16:59 | CT ---
Date of service: 09/09/2018 PROCEDURE: CT HEAD WITH AND WITHOUT CONTRAST HISTORY: cva COMPARISON: Head CT without contrast 09/08/2018. TECHNIQUE: Axial computed tomography images were obtained through the head/brain with and without intravenous contrast enhancement. Contrast dose: Omnipaque 300, 99 cc Radiation dose: Total exam DLP = 1789.5 mGy-cm. This CT exam was performed using one or more of the following dose reduction techniques: Automated exposure control, adjustment of the mA and/or kV according to patient size, and/or use of iterative reconstruction technique. FINDINGS: HEMORRHAGE: No intracranial hemorrhage. BRAIN: Normal esteban-white matter differentiation and density are appreciated throughout the cerebrum and cerebellum with the brainstem appearing unremarkable as well. There is no mass effect. There is no suspicious extra-axial fluid collection and the midline brain anatomy appears diffusely unremarkable. No interval change compared prior head CT dated 09/08/2018. No abnormal intracranial enhancement appreciated above or below the tentorium including the brainstem. VENTRICLES: Unremarkable. No hydrocephalus. CALVARIUM: Unremarkable. SINUSES: Unremarkable as visualized. No significant inflammatory changes. MASTOID AIR CELLS: Unremarkable as visualized. No mastoid effusion. OTHER FINDINGS: None. IMPRESSION: Normal pre and post contrast enhanced CT of the head. Stable unenhanced CT prior to intravenous contrast compared to 09/08/2018 CT..
--- NOTE | 2018-09-09 22:01 | CP.PCM.PN ---
Subjective - Date & Time of Evaluation Date of Evaluation: 09/09/18 Time of Evaluation: 11:00 - Subjective Subjective: Patient is doing well today, with improving language, and dysarthria no resolved. No headache, no numbness, no tingling, no aphasia, no apraxia. NIH stroke scale 0. S/p TPA day 1. ON exam: AAOX3. PERRL. Cn 2-12 normal. MMS: 30/30 No facial asymmetry. Speech is normal. no aphasia or dysarthria. EOMI. motor: strength normal, sensory exam normal. Gait is normal. +2 dtr ul and ll bl. Toes downgoing. No clonus. No cerebellar signs noted. Objective - Vital Signs/Intake and Output Vital Signs (last 24 hours): Temp Pulse Resp BP Pulse Ox 97.6 F 80 14 139/84 96 09/09/18 21:53 09/09/18 21:53 09/09/18 21:53 09/09/18 21:53 09/09/18 21:53 Intake and Output: 09/09/18 09/10/18 18:59 06:59 Intake Total 600 Balance 600 - Medications Medications: Current Medications Acetaminophen (Tylenol 325mg Tab) 650 mg PO Q6H PRN PRN Reason: Fever >100.4 F Aspirin (Ecotrin) 81 mg PO DAILY [facility] Last Admin: 09/09/18 09:19 Dose: 81 mg Atorvastatin Calcium (Lipitor) 20 mg PO DAILY [facility] Last Admin: 09/09/18 09:19 Dose: 20 mg Sodium Chloride (Sodium Chloride 0.9%) 1,000 mls @ 100 mls/hr IV .Q10H [facility] Last Admin: 09/09/18 09:20 Dose: 100 mls/hr Ondansetron HCl (Zofran Inj) 4 mg IVP Q6H PRN PRN Reason: Nausea/Vomiting - Labs Labs: 09/09/18 04:30 09/09/18 04:30 PT 13.6 Seconds (9.8-13.1) H 09/09/18 04:30 INR 1.2 09/09/18 04:30 APTT 32.5 Seconds (25.6-37.1) 09/09/18 04:30 Assessment and Plan - Assessment and Plan (Free Text) Assessment: 48 yr old male s/p tpa who is now doing well with resolved deficits and embolic strokes. Plan; 1. Echo bubble study 2. Start aspirin 3. PT ST OT. dr. key
[2018-09-10] MEDS: Sodium Chloride 0.9% 1,000 ML IV SCH
[2018-09-10 06:24] LABS: HEMOGLOBIN 14.4 g/dL (12.0-18.0); MEAN CELL VOLUME 86.5 fl (80.0-94.0); MEAN CORPUSCULAR HEMOGLOBIN 29.9 pg (27.0-31.0); MEAN CORPUSCULAR HGB CONC 34.5 g/dL (33.0-37.0); RBC 4.81 Mil/uL (4.40-5.90); RED CELL DISTRIBUTION WIDTH 12.9 % (11.5-14.5); WHITE BLOOD COUNT 5.3 K/uL (4.8-10.8)
[2018-09-10 06:44] LABS: ALB/GLOB RATIO 1.2 (1.0-2.1); ALBUMIN 3.7 g/dL (3.5-5.0); ALT/SGPT 28 U/L (21-72); AST/SGOT 21 U/L (17-59); BLOOD UREA NITROGEN 11 mg/dl (9-20); CALCIUM 8.8 mg/dL (8.4-10.2); GFR NON-AFRICAN AMERICAN > 60
--- NOTE | 2018-09-10 11:23 | PN ---
DATE: 09/10/2018 CRITICAL CARE PROGRESS NOTE LOCATION: Patient in ICU, bed 435. TIME SPENT: 25 minutes. SUBJECTIVE: The patient is seen, evaluated at the bedside. Past medical, surgical, family and social history reviewed. A 48-year-old male, no significant medical history in the past, admitted with slurring of speech and weakness of right arm, status post tPA. Overnight normotensive, afebrile. Telemetry sinus rhythm. This morning, alert, awake, follows commands appropriate. Able to swallow without signs, symptoms of aspiration. PHYSICAL EXAMINATION: VITAL SIGNS: Temperature 97.8, heart rate 80 regular, blood pressure 135/91 over 117/74, respiratory rate 12, thoracoabdominal, saturation 96% on room air. Intake 1600, output 500, positive balance 1100. Weight of 207 pounds. HEAD, EYES, EARS, NOSE, AND THROAT: Pupils are reactive. Conjunctivae pink. Sclerae white. NECK: Supple. Trachea is central. CHEST: Bilateral breath sounds. Clear to auscultation. HEART: Rhythm regular. S1, S2 normal intensity. No S3, S4 gallop. No audible murmur. ABDOMEN: Bowel sounds are present. Soft. Liver and spleen not palpable. Bladder not distended. EXTREMITIES: No clubbing, cyanosis or edema. NEUROLOGIC: Nonfocal. No motor deficit, no facial droop. Speech improved, mild garbling still present. LABORATORY DATA: WBC 5.3, hemoglobin 14.4, hematocrit 41.6, platelet count 205. SMA-7: Sodium 136, potassium 4, chloride 103, CO2 26, blood urea nitrogen 11, creatinine 0.9, random glucose 90, calcium 8.8, total bilirubin 0.5, AST 21, ALT 28, alkaline phosphatase 37, total protein 6.7, albumin 3.7. Vitamin B12 354. Urine drug screen negative. Microbiology, none reported. Head CT repeated on 09/09/2018 post tPA, normal pre and post contrast enhanced CT of head. Echocardiogram report pending. CURRENT MEDICATIONS: Aspirin 81 mg daily, Lipitor 20 mg daily, Tylenol 650 every 6 hours p.r.n. IMPRESSION: Status post acute cerebrovascular accident status post tPA; post tPA, course uneventful. Symptoms at presentation with slurring and weakness of the right arm improved, minimal residual slurring of speech. Repeat CT head report normal, echo with bubble study pending. We will continue aspirin, Lipitor, and speech therapy followup. The patient can be transferred to regular floor and further followup with the echo report and neurology followup. Laith Montano MD
--- NOTE | 2018-09-10 11:33 | PN ---
DATE: 09/10/2018 SUBJECTIVE: The patient is seen and examined. Interim events noted. Consults noted and appreciated. Exhibition Designer and Neurology interventions noted and appreciated. The patient remains in the intensive care unit. Feels okay. No new complaints of chest pain or shortness of breath, was able to stand up on his own and go to chair without any unsteadiness or fall. Speech has returned to almost normal. PHYSICAL EXAMINATION: GENERAL: The patient is in no acute distress. VITAL SIGNS: Stable. HEART: S1 and S2 normal and regular. LUNGS: Good bilateral air exchange. ABDOMEN: Soft and nontender. EXTREMITIES: No edema. No calf swelling. No tenderness. No acute ischemia. CENTRAL NERVOUS SYSTEM: Essentially unchanged. The patient has almost returned to his baseline status. DIAGNOSTIC DATA: Available diagnostic data reviewed. CAT scan is unremarkable. Telemetry monitoring does not show significant arrhythmias. ASSESSMENT AND PLAN: Overall, the patient's general medical condition is stable. Plan as ordered. Maninder Sanders MD
[2018-09-11 05:20] LABS: HEMOGLOBIN 14.8 g/dL (12.0-18.0); MEAN CELL VOLUME 86.1 fl (80.0-94.0); MEAN CORPUSCULAR HGB CONC 34.9 g/dL (33.0-37.0); RBC 4.94 Mil/uL (4.40-5.90); RED CELL DISTRIBUTION WIDTH 12.6 % (11.5-14.5); WHITE BLOOD COUNT 6.1 K/uL (4.8-10.8)
[2018-09-11 05:42] LABS: ALB/GLOB RATIO 1.4 (1.0-2.1); ALT/SGPT 34 U/L (21-72); AST/SGOT 22 U/L (17-59); BLOOD UREA NITROGEN 12 mg/dl (9-20); CALCIUM 9.3 mg/dL (8.4-10.2); GFR NON-AFRICAN AMERICAN > 60
--- NOTE | 2018-09-11 10:47 | PCM.STROKE ---
Interval History Stroke Date: 09/08/18 No other interval changes in current, PMHx, FHx, SocHx, ROS: other than on note by: (initial neuro consultation note) - Treatment DVT Prophylaxis: Sequential compression device in place bilaterally Antiplatelet: Acetylsalicylic acid (ASA), Plavix Statin: Atrovastatin - Education Written Stroke Education provided regarding: personal risk factors, stroke warning sign/symptoms, how to activate emergency medical services, need to follow up after discharge Hx Atrial Fibrillation: No Hx Atrial Flutter: No - Therapy Notes I have reviewed care of the patient with: Dr. Villafana NIHSS Stroke Scale - Date/Time Evaluation Performed Date Performed: 09/11/18 Time Performed: 11:42 When Was NIHSS Performed: Re-evaluation - How Severe is the Stroke Level of Consciousness: 0=Alert LOC to Questions: 0=Both comments correct LOC to commands: 0=Obeys both correctly Best Gaze: 0=Normal Visual: 0=No visual loss Facial: 0=Normal Motor Arm - Left: 0=No drift Motor Arm - Right: 0=No drift Motor Leg - Left: 0=No drift Motor Leg - Right: 0=No drift Limb Ataxia: 0=Absent Sensory: 0=Normal Best Language: 0=No aphasia Dysarthia: 0=Normal articulation Extinction & Inattention (Neglect): 0=Normal, no object Score: 0 Exam - Vital Sign Vital Signs: Temp Pulse Resp BP Pulse Ox 97.2 F L 65 20 142/80 98 09/11/18 08:36 09/11/18 08:51 09/11/18 08:36 09/11/18 08:36 09/11/18 08:36 Constitutional: No distress Ophthalmoscopic: absent: papilledema, hemorrhage Right Pupil: Reactive Right Pupil Size (in mm): 3 Left Pupil: Reactive Left Pupil Size (in mm): 3 Cardiovascular: Regular rate & rhythm Mental Status: Normal: Orientation, Memory, Attention, Language, Fund of Knowledge Cranial Nerve: Normal: Visual Hoff, Extraocular movement intact, Facial Sensation, Facial Strength, Hearing, Palate/Tongue Movement, Shoulder Strength Motor: Tone, Bulk Neuro motor strength exam: Left Upper Extremity: 5, Right Upper Extremity: 5, Left Lower Extremity: 5, Right Lower Extremity: 5 Sensation: Intact to pin, Vibration DTR: Patellar Left: 1+, Patellar Right: 1+ Flexor Plantar Reflex: Normal Coordination: Finger/nose Vascular Risk: Lipids, Activity, Dietary - Data reviewed Laboratory results: 09/11/18 04:20 09/11/18 04:20 Triglycerides 117 mg/DL (0-149) 09/08/18 09:27 Cholesterol 210 mg/dL (0-199) H 09/08/18 09:27 LDL Cholesterol Direct 124 mg/dL (0-129) 09/08/18 09:27 HDL Cholesterol 43 MG/DL (30-70) 09/08/18 09:27 Hemoglobin A1c 5.3 % (4.2-6.5) 09/09/18 04:30 Echo: pending echo with bubble results Assessment and Plan (1) Acute CVA (cerebrovascular accident) Assessment & Plan: Imaging reviewed: -Brain MRI (09/08/18): Findings most compatible with limited ischemia involving the left frontal and frontoparietal distribution as discussed above although no mass-effect is appreciated at this time. Clinically correlate further as the unusual gyriform pattern of restricted diffusion at the inferior left frontal parietal junction is unusual and felt to reflect ischemia. Infectious or inflammatory change is the differential diagnosis. Consider follow-up contrast MRI for added characterization. -CTs of Head, CTA head and neck, MRA head and neck all reviewed. -Pending ECHO with bubble official results; poss PFO per nursing report from ECHO department this morning--will f/u. -Cardiology consult ordered. -MARIBELL ordered; to be done if Dr. Alvarez is in agreement--will f/u. -Continue ASA, Plavix, Statin -PT/OT/ST for stroke protocol -Notify neuro team of any acute changes in pt's condition. Case discussed with Dr. Villafana Status: Acute
--- NOTE | 2018-09-11 12:00 | PN ---
DATE: 09/11/2018 SUBJECTIVE: The patient seen and examined. Interim events noted. The patient remains in progressive care unit on telemetry monitoring. Denies any specific complaint. No chest pain. No shortness of breath. Speech has returned to almost normal. PHYSICAL EXAMINATION: GENERAL: The patient is in no acute distress. VITAL SIGNS: Stable. HEART: S1 and S2 normal and regular. LUNGS: Good bilateral air exchange. ABDOMEN: Soft, nontender. EXTREMITIES: No edema, no calf swelling, no tenderness, no acute ischemia. CENTRAL NERVOUS SYSTEM: Exam is essentially unchanged. DIAGNOSTIC DATA: Available diagnostic data reviewed. Telemetry monitoring does not show significant arrhythmias. ASSESSMENT AND PLAN: Overall, the patient's general medical condition is stable and improving. Physical therapy evaluation is pending. Plan as ordered. Maninder Sanders MD
--- NOTE | 2018-09-11 20:02 | CARD ---
APPROVED REPORT Date of service: 09/09/2018 EXAM: Two-dimensional and M-mode echocardiogram with Doppler and color Doppler. Other Information Quality : AverageRhythm : NSR INDICATION CVA/TIA Echo Enhancing Agent Indication: Rule Out Septal Defect Agent/Amount Used: Agitated Saline 2D DIMENSIONS IVSd1.23 (0.7-1.1cm)LVDd4.00 (3.9-5.9cm) LVOT Diameter2.05 (1.8-2.4cm)PWd1.40 (0.7-1.1cm) IVSs1.62 (0.8-1.2cm)LA Igkoji46 (18-58mL) LVDs2.78 (2.5-4.0cm)FS (%) 30.4 % PWs1.67 (0.8-1.2cm)SV55.28 ml LVEF (%)62.7 (>50%)CO4.81 L/min M-Mode DIMENSIONS Left Atrium (MM)3.90 (2.5-4.0cm)Aortic Root3.00 (2.2-3.7cm) Aortic Valve AoV Peak Tsephpda468.7cm/sAoV VTI23.3cmAO Peak GR.6mmHg LVOT Peak Itkobwez843.9cm/sLVOT VTI21.68cmAO Mean GR.3mmHg LEYLA (VMAX)1.70xz9YBK (VTI)1.44cm2 Mitral Valve MV E Qtdujxrm42.7cm/sMV E Peak Gr.28mmHgMV DECEL CARN130oa MV A Csbiqwrz70.3cm/sMV IYP41oxI/A ratio0.7 MVA (PHT)4.21cm2 TDI Lateral E' Peak V8.96cm/sMedial E' Peak V8.15cm/sE/Lateral E'6.8 E/Medial E'7.4 Pulmonary Valve RVOT VTI13.2cm Tricuspid Valve TR Peak Hkiuhzjr008gw/sTR Peak Gr.14mmHg LEFT VENTRICLE The left ventricle is normal size. There is normal left ventricular wall thickness. The left ventricular systolic function is normal. The estimated ejection fraction is 60-65% No regional wall motion abnormalities noted.. Transmitral Doppler flow pattern is Grade I-abnormal relaxation pattern. No left ventricle thrombus noted on this study. There is no ventricular septal defect visualized. There is no left ventricular aneurysm. There is no mass noted in the left ventricle. RIGHT VENTRICLE The right ventricle is normal size. There is normal right ventricular wall thickness. The right ventricular systolic function is normal. ATRIA The left atrium is mildly dilated. The right atrium size is normal. The interatrial septum has PFO or small ASD and was evident on bubble study. AORTIC VALVE The aortic valve is normal in structure. Trace aortic regurgitation is present. There is no aortic valvular stenosis. There is no aortic valvular vegetation. MITRAL VALVE The mitral valve is normal in structure. There is no evidence of mitral valve prolapse. There is no mitral valve stenosis. There is trace mitral valve regurgitation noted. TRICUSPID VALVE The tricuspid valve is normal in structure. There is trace tricuspid valve regurgitation noted. RVSP is calculated at 26 mm Hg. There is no tricuspid valve prolapse or vegetation. There is no tricuspid valve stenosis. PULMONIC VALVE The pulmonary valve is normal in structure. There is trace pulmonic valvular regurgitation. There is no pulmonic valvular stenosis. GREAT VESSELS The aortic root is mildly dilated. The ascending aorta is normal in size. The pulmonary artery is normal. The IVC is normal in size and collapses >50% with inspiration. PERICARDIAL EFFUSION There is no pericardial effusion. There is no pleural effusion. <Conclusion> The estimated ejection fraction is 60-65% Transmitral Doppler flow pattern is Grade I-abnormal relaxation pattern. The left atrium is mildly dilated. The interatrial septum has PFO or small ASD and was evident on bubble study. Consider further workup as indicated. There is trace tricuspid valve regurgitation noted. RVSP is calculated at 26 mm Hg. The aortic root is mildly dilated.
--- NOTE | 2018-09-12 07:38 | CP.PCM.PN ---
<Mehrdad Sawyer - Last Filed: 09/12/18 07:50> Subjective - Date & Time of Evaluation Date of Evaluation: 09/12/18 Time of Evaluation: 07:33 - Subjective Subjective: Patient seen and examined this morning at bedside with Dr. Sanders. MAGGIE, s/p TPA day 4, NIHSS 0, denies any headache, weakness/numbness/tingling, blurred vision, aphasia or dysarthria. ECHO: positive PFO vs ASD Possible MARIBELL as per Dr. Alvarez Objective - Vital Signs/Intake and Output Vital Signs (last 24 hours): Temp Pulse Resp BP Pulse Ox 98.3 F 77 18 122/74 94 L 09/12/18 05:00 09/12/18 05:00 09/12/18 05:00 09/12/18 05:00 09/12/18 05:00 - Medications Medications: Current Medications Acetaminophen (Tylenol 325mg Tab) 650 mg PO Q6H PRN PRN Reason: Fever >100.4 F Aspirin (Aspirin) 325 mg PO DAILY [facility] Last Admin: 09/11/18 10:17 Dose: 325 mg Atorvastatin Calcium (Lipitor) 20 mg PO DAILY [facility] Last Admin: 09/11/18 10:17 Dose: 20 mg Clopidogrel Bisulfate (Plavix) 75 mg PO DAILY [facility] Last Admin: 09/11/18 10:17 Dose: 75 mg Ondansetron HCl (Zofran Inj) 4 mg IVP Q6H PRN PRN Reason: Nausea/Vomiting - Labs Labs: 09/11/18 04:20 09/11/18 04:20 PT 13.6 Seconds (9.8-13.1) H 09/09/18 04:30 INR 1.2 09/09/18 04:30 APTT 32.5 Seconds (25.6-37.1) 09/09/18 04:30 - Constitutional Appears: No Acute Distress - Head Exam Head Exam: NORMAL INSPECTION - Eye Exam Eye Exam: EOMI, Normal appearance, PERRL Pupil Exam: NORMAL ACCOMODATION - ENT Exam ENT Exam: Mucous Membranes Moist - Neck Exam Neck Exam: Normal Inspection - Respiratory Exam Respiratory Exam: Clear to Ausculation Bilateral, NORMAL BREATHING PATTERN - Cardiovascular Exam Cardiovascular Exam: REGULAR RHYTHM, +S1, +S2 - GI/Abdominal Exam GI & Abdominal Exam: Soft, Normal Bowel Sounds. absent: Tenderness - Back Exam Back Exam: NORMAL INSPECTION - Neurological Exam Neurological Exam: Alert, Awake, CN II-XII Intact, Oriented x3. absent: Motor Sensory Deficit Neuro motor strength exam: Left Upper Extremity: 5, Right Upper Extremity: 5, Left Lower Extremity: 5, Right Lower Extremity: 5 Additional comments: no pronator drift or facial dropping - Psychiatric Exam Psychiatric exam: Normal Affect - Skin Skin Exam: Normal Color Assessment and Plan - Assessment and Plan (Free Text) Assessment: A/P: 40 y/o male s/p ischemic stroke and TPA day 4, no neuro deficit/resolved. - NIHSS score 0 - Consult neuro, Dr. Coronel, recommendations appreciated - ECHO showed PFO vs ASD - Consult Cardio, Dr. Alvarez, recommendations appreciated - Possible MARIBELL to see the size of ASD (consider cardiac cath if PFO) - Will get b/l LEs doppler - Normal B12/Homocysteine and TSH - C/w Aspirin/Statin and Plavix - C/w Neuro checks - Cleared by PT - DVT PPX: SCD/Ambulatory Case discussed with Dr. Sanders <Maninder Sanders - Last Filed: 09/15/18 18:01> Objective - Vital Signs/Intake and Output Vital Signs (last 24 hours): Temp Pulse Resp BP Pulse Ox 97.3 F L 84 18 135/85 96 09/13/18 12:43 09/13/18 12:43 09/13/18 12:43 09/13/18 12:43 09/13/18 12:43 - Labs Labs: 09/11/18 04:20 09/11/18 04:20 PT 13.6 Seconds (9.8-13.1) H 09/09/18 04:30 INR 1.2 09/09/18 04:30 APTT 32.5 Seconds (25.6-37.1) 09/09/18 04:30 Assessment and Plan - Assessment and Plan (Free Text) Assessment: Patient was personally seen and examined by me in rounds with residents. Available labs and diagnostic data reviewed. Case, Patient's condition and management plan discussed with residents in rounds. Agree with resident's progress note. Plan: As ordered.
[2018-09-12] MEDS ORDERED: Propofol 10 mg/ml Inj (20 ML) ONE (12:11)
[2018-09-12] MEDS ORDERED: Lidocaine 1% 5ml Abboject ONE (12:11)
[2018-09-12] MEDS ORDERED: Etomidate 20 mg/10ml Inj IV ONE (12:11)
[2018-09-12] MEDS ORDERED: Midazolam 2 MG/2 ML VIAL ONE (12:12)
[2018-09-12] MEDS ORDERED: Succinylcholine Chloride 20 mg/ml Syr (5 ml) IV ONE (12:19)
--- NOTE | 2018-09-12 13:38 | US ---
Date of service: 09/12/2018 PROCEDURE: Bilateral lower extremity venous duplex Doppler. HISTORY: S/p Stroke, ASD COMPARISON: None available. TECHNIQUE: Bilateral common femoral, superficial femoral, popliteal and posterior tibial veins were evaluated. Flow was assessed with color Doppler, compressibility, assessment of phasic flow and augmentation response. FINDINGS: COMMON FEMORAL VEIN: Right CFV: Unremarkable. Left CFV: Unremarkable. SUPERFICIAL FEMORAL VEIN: Right SFV: Unremarkable. Left SFV: Unremarkable. POPLITEAL VEIN: Right Popliteal: Unremarkable. Left Popliteal: Unremarkable. POSTERIOR TIBIAL VEIN: Right PTV: Unremarkable. Left PTV: Unremarkable. OTHER FINDINGS: None. IMPRESSION: No evidence of deep venous thrombosis.
[2018-09-12] MEDS ORDERED: Sodium Chloride 0.9% 1,000 ML IV ONE (13:40)
[2018-09-12] MEDS ORDERED: Lactated Ringer's 500 ML IV SCH (13:45)
--- NOTE | 2018-09-12 14:18 | CP.PCM.CON ---
History of Present Illness - History of Present Illness History of Present Illness: Consultation for evaluation of PFO/ASD and new onset CVA HPI: Past Patient History - Past Medical History & Family History Past Medical History?: Yes - Past Social History Smoking Status: Never Smoked - CARDIAC Hx Atrial Fibrillation: No - PULMONARY Hx Respiratory Disorders: No - NEUROLOGICAL Hx Neurological Disorder: No - HEENT Hx HEENT Problems: No - RENAL Hx Chronic Kidney Disease: No - ENDOCRINE/METABOLIC Hx Endocrine Disorders: No - HEMATOLOGICAL/ONCOLOGICAL Hx Blood Disorders: No - INTEGUMENTARY Hx Dermatological Problems: Yes Other/Comment: hx of cancerous moles, pt has received light therapy over the last 3 or 4 years - MUSCULOSKELETAL/RHEUMATOLOGICAL Hx Musculoskeletal Disorders: No Hx Falls: No - GASTROINTESTINAL Hx Gastrointestinal Disorders: No - GENITOURINARY/GYNECOLOGICAL Hx Genitourinary Disorders: No - PSYCHIATRIC Hx Psychophysiologic Disorder: No Hx Substance Use: No - SURGICAL HISTORY Hx Surgeries: Yes Other/Comment: left elbow repair with hardware, then hardware was removed - ANESTHESIA Hx Anesthesia: Yes Hx Anesthesia Reactions: No Hx Malignant Hyperthermia: No Meds Allergies/Adverse Reactions: Allergies Allergy/AdvReac Type Severity Reaction Status Date / Time No Known Allergies Allergy Verified 09/08/18 09:13 - Medications Medications: Current Medications Acetaminophen (Tylenol 325mg Tab) 650 mg PO Q6H PRN PRN Reason: Fever >100.4 F Aspirin (Aspirin) 325 mg PO DAILY [facility] Last Admin: 09/12/18 08:43 Dose: 325 mg Atorvastatin Calcium (Lipitor) 20 mg PO DAILY [facility] Last Admin: 09/12/18 08:43 Dose: 20 mg Clopidogrel Bisulfate (Plavix) 75 mg PO DAILY [facility] Last Admin: 09/12/18 08:43 Dose: 75 mg Lactated Ringer's (Lactated Ringer's 500ml) 500 mls @ 75 mls/hr IV .Q6H40M [facility] Sodium Chloride (Sodium Chloride 0.9%) 1,000 mls @ 100 mls/hr IV .Q10H [facility] Ondansetron HCl (Zofran Inj) 4 mg IVP Q6H PRN PRN Reason: Nausea/Vomiting Results - Vital Signs Recent Vital Signs: Last Vital Signs Temp 98.0 F 09/12/18 08:48 Pulse 79 09/12/18 08:48 Resp 18 09/12/18 08:48 BP 131/79 09/12/18 08:48 Pulse Ox 98 09/12/18 08:48 - Labs Result Diagrams: 09/11/18 04:20 09/11/18 04:20 Labs: Laboratory Results - last 24 hr 09/11/18 09/11/18 09/12/18 15:59 21:27 06:01 POC Glucose (mg/dL) 85 158 H 79 Assessment & Plan (1) PFO with atrial septal aneurysm Assessment and Plan: plan for MARIBELL in am npo p mn Status: Acute (2) Acute CVA (cerebrovascular accident) Status: Acute
[2018-09-12] MEDS: Sodium Chloride 0.9% 1,000 ML IV SCH ×2 (18:04→23:45)
--- NOTE | 2018-09-12 20:15 | CP.PCM.PN ---
Subjective - Date & Time of Evaluation Date of Evaluation: 09/12/18 Time of Evaluation: 07:00 - Subjective Subjective: Pt seen and examined at bedside this morning. Pt has no new complaints at this time. Objective - Vital Signs/Intake and Output Vital Signs (last 24 hours): Temp Pulse Resp BP Pulse Ox 98.5 F 79 17 121/77 98 09/12/18 19:38 09/12/18 19:38 09/12/18 19:38 09/12/18 19:38 09/12/18 19:38 Intake and Output: 09/12/18 09/13/18 18:59 06:59 Intake Total 100 Balance 100 - Medications Medications: Current Medications Acetaminophen (Tylenol 325mg Tab) 650 mg PO Q6H PRN PRN Reason: Fever >100.4 F Aspirin (Aspirin) 325 mg PO DAILY [facility] Last Admin: 09/12/18 08:43 Dose: 325 mg Atorvastatin Calcium (Lipitor) 20 mg PO DAILY [facility] Last Admin: 09/12/18 08:43 Dose: 20 mg Lactated Ringer's (Lactated Ringer's 500ml) 500 mls @ 75 mls/hr IV .Q6H40M [facility] Last Admin: 09/12/18 18:03 Dose: Not Given Sodium Chloride (Sodium Chloride 0.9%) 1,000 mls @ 100 mls/hr IV .Q10H [facility] Last Admin: 09/12/18 18:04 Dose: Not Given Ondansetron HCl (Zofran Inj) 4 mg IVP Q6H PRN PRN Reason: Nausea/Vomiting Rivaroxaban (Xarelto) 20 mg PO QD5 [facility]; Protocol Last Admin: 09/12/18 18:05 Dose: 20 mg - Labs Labs: 09/11/18 04:20 09/11/18 04:20 PT 13.6 Seconds (9.8-13.1) H 09/09/18 04:30 INR 1.2 09/09/18 04:30 APTT 32.5 Seconds (25.6-37.1) 09/09/18 04:30 - Constitutional Appears: No Acute Distress - Head Exam Head Exam: ATRAUMATIC, NORMOCEPHALIC - Eye Exam Eye Exam: EOMI - ENT Exam ENT Exam: Mucous Membranes Moist - Neck Exam Neck Exam: Full ROM. absent: Tenderness - Respiratory Exam Respiratory Exam: Clear to Ausculation Bilateral, NORMAL BREATHING PATTERN. absent: Accessory Muscle Use - GI/Abdominal Exam GI & Abdominal Exam: Soft, Normal Bowel Sounds. absent: Tenderness - Extremities Exam Extremities Exam: Full ROM. absent: Calf Tenderness, Pedal Edema - Neurological Exam Neurological Exam: Alert, Awake, Oriented x3 - Psychiatric Exam Psychiatric exam: Normal Affect, Normal Mood - Skin Skin Exam: Dry, Intact, Warm Assessment and Plan - Assessment and Plan (Free Text) Assessment: (1) PFO with atrial septal aneurysm Status: Acute (2) Acute CVA (cerebrovascular accident) Status: Acute Plan: ECHO 09/08/18 showed possible PFO/ASD ECHO 09/11/18 follow up read discontinue plavix start ASA start eliquis 20 daily Pt seen, examined, assessment and plan discussed with Dr Antonio Olson PGY1, Internal Medicine Resident
[2018-09-13 08:04] VITALS: RESP 18
--- NOTE | 2018-09-13 08:50 | CP.PCM.PN ---
<Mehrdad Sawyer - Last Filed: 09/13/18 08:47> Subjective - Date & Time of Evaluation Date of Evaluation: 09/13/18 Time of Evaluation: 07:00 - Subjective Subjective: Patient seen and examined this morning at bedside with Dr. Sanders. MAGGIE, s/p TPA day 5, NIHSS 0, denies any headache, weakness/numbness/tingling, blurred vision, aphasia or dysarthria. Cleared by PT/ST Objective - Vital Signs/Intake and Output Vital Signs (last 24 hours): Temp Pulse Resp BP Pulse Ox 98.3 F 75 18 127/87 93 L 09/13/18 08:00 09/13/18 08:00 09/13/18 08:00 09/13/18 08:00 09/13/18 08:00 - Medications Medications: Current Medications Acetaminophen (Tylenol 325mg Tab) 650 mg PO Q6H PRN PRN Reason: Fever >100.4 F Aspirin (Ecotrin) 81 mg PO DAILY [facility] Last Admin: 09/13/18 08:41 Dose: 81 mg Atorvastatin Calcium (Lipitor) 20 mg PO DAILY [facility] Last Admin: 09/13/18 08:41 Dose: 20 mg Lactated Ringer's (Lactated Ringer's 500ml) 500 mls @ 75 mls/hr IV .Q6H40M [facility] Last Admin: 09/12/18 18:03 Dose: Not Given Sodium Chloride (Sodium Chloride 0.9%) 1,000 mls @ 100 mls/hr IV .Q10H [facility] Last Admin: 09/12/18 23:45 Dose: 100 mls/hr Ondansetron HCl (Zofran Inj) 4 mg IVP Q6H PRN PRN Reason: Nausea/Vomiting Rivaroxaban (Xarelto) 20 mg PO QD5 [facility]; Protocol Last Admin: 09/12/18 18:05 Dose: 20 mg - Labs Labs: 09/11/18 04:20 09/11/18 04:20 PT 13.6 Seconds (9.8-13.1) H 09/09/18 04:30 INR 1.2 09/09/18 04:30 APTT 32.5 Seconds (25.6-37.1) 09/09/18 04:30 - Constitutional Appears: No Acute Distress - Head Exam Head Exam: NORMAL INSPECTION - Eye Exam Eye Exam: EOMI, Normal appearance, PERRL Pupil Exam: NORMAL ACCOMODATION - ENT Exam ENT Exam: Mucous Membranes Moist - Neck Exam Neck Exam: Normal Inspection - Respiratory Exam Respiratory Exam: Clear to Ausculation Bilateral, NORMAL BREATHING PATTERN - Cardiovascular Exam Cardiovascular Exam: REGULAR RHYTHM - GI/Abdominal Exam GI & Abdominal Exam: Soft, Normal Bowel Sounds - Extremities Exam Extremities Exam: Normal Capillary Refill, Normal Inspection - Back Exam Back Exam: NORMAL INSPECTION - Neurological Exam Neurological Exam: Alert, Awake, CN II-XII Intact, Normal Gait, Oriented x3 Neuro motor strength exam: Left Upper Extremity: 5, Right Upper Extremity: 5, Left Lower Extremity: 5, Right Lower Extremity: 5 Additional comments: NIHSS 0 - Psychiatric Exam Psychiatric exam: Normal Affect - Skin Skin Exam: Normal Color Assessment and Plan - Assessment and Plan (Free Text) Assessment: A/P: 40 y/o male s/p ischemic stroke and TPA day 5, no neuro deficit/resolved. - NIHSS score 0 - Consult neuro, Dr. Coronel, recommendations appreciated - ECHO showed PFO vs ASD - Consult Cardio, Dr. Alvarez, recommendations appreciated - S/p MARIBELL on 09/12 for ASD eval, f/u further plan with Dr. Alvarez regarding ASD management - No DVT on LEs u/s - F/u coagulopathy work up by neuro - C/w Aspirin/Statin, discontinued Plavix by cardio and started on Xarelto - Cleared by PT/ST - DVT PPX: SCD/Ambulatory Case discussed with Dr. Sanders <Maninder Sanders - Last Filed: 09/15/18 17:59> Objective - Vital Signs/Intake and Output Vital Signs (last 24 hours): Temp Pulse Resp BP Pulse Ox 97.3 F L 84 18 135/85 96 09/13/18 12:43 09/13/18 12:43 09/13/18 12:43 09/13/18 12:43 09/13/18 12:43 - Labs Labs: 09/11/18 04:20 09/11/18 04:20 PT 13.6 Seconds (9.8-13.1) H 09/09/18 04:30 INR 1.2 09/09/18 04:30 APTT 32.5 Seconds (25.6-37.1) 09/09/18 04:30 Assessment and Plan - Assessment and Plan (Free Text) Assessment: Patient was personally seen and examined by me in rounds with residents. Available labs and diagnostic data reviewed. Case, Patient's condition and management plan discussed with residents in rounds. Agree with resident's progress note. Plan: As ordered.
--- NOTE | 2018-09-13 11:50 | PCM.STROKE ---
Interval History Stroke Date: 09/08/18 - Treatment Antiplatelet: Acetylsalicylic acid (ASA) Anticoagulation: Xareltol Statin: Atrovastatin - Education Written Stroke Education provided regarding: personal risk factors, stroke warning sign/symptoms, how to activate emergency medical services, need to follow up after discharge Hx Atrial Fibrillation: No Hx Atrial Flutter: No - Therapy Notes I have reviewed care of the patient with: Dr. Villafana NIHSS Stroke Scale - Date/Time Evaluation Performed Date Performed: 09/13/18 Time Performed: 11:43 When Was NIHSS Performed: Re-evaluation - How Severe is the Stroke Level of Consciousness: 0=Alert LOC to Questions: 0=Both comments correct LOC to commands: 0=Obeys both correctly Best Gaze: 0=Normal Visual: 0=No visual loss Facial: 0=Normal Motor Arm - Left: 0=No drift Motor Arm - Right: 0=No drift Motor Leg - Left: 0=No drift Motor Leg - Right: 0=No drift Limb Ataxia: 0=Absent Sensory: 0=Normal Best Language: 0=No aphasia Dysarthia: 0=Normal articulation Extinction & Inattention (Neglect): 0=Normal, no object Score: 0 Exam - Vital Sign Vital Signs: Temp Pulse Resp BP Pulse Ox 98.3 F 75 18 127/87 93 L 09/13/18 08:00 09/13/18 08:00 09/13/18 08:00 09/13/18 08:00 09/13/18 08:00 Constitutional: No distress, Normal appearing Ophthalmoscopic: absent: papilledema, hemorrhage Right Pupil: Reactive Left Pupil: Reactive Mental Status: Normal: Orientation, Memory, Attention, Language, Fund of Knowledge Motor: Tone, Bulk Neuro motor strength exam: Left Upper Extremity: 5, Right Upper Extremity: 5, Left Lower Extremity: 5 Gait: Normal with Absent Rhomberg - Data reviewed Laboratory results: 09/11/18 04:20 09/11/18 04:20 Triglycerides 117 mg/DL (0-149) 09/08/18 09:27 Cholesterol 210 mg/dL (0-199) H 09/08/18 09:27 LDL Cholesterol Direct 124 mg/dL (0-129) 09/08/18 09:27 HDL Cholesterol 43 MG/DL (30-70) 09/08/18 09:27 Hemoglobin A1c 5.3 % (4.2-6.5) 09/09/18 04:30 Assessment and Plan (1) Acute CVA (cerebrovascular accident) Assessment & Plan: Mr. Watkins is neurologically cleared for d/c home today. He has also been cleared by cardiology for d/c. He is to continue ASA 81mg PO daily, Xarelto daily (as ordered by Dr. Alvarez), and statin q HS. He is to follow up with his PMD and Dr. Alvarez in their offices as directed by them. He is to follow up with Dr. Villafana in the office within 1 month. Results from hypercoagulable w/u are all pending; f/u with results during neuro and cardio office f/u visit. If there are any abnormalities with the labs, he may be referred to Heme. I have discussed the d/c plan as well as f/u specifics with the pt at length. He is in agreement and verbalizes understanding. Thank you for allowing us to participate in this pt's care. Cass Torres DNP, [employer]-C Case discussed with Dr. Villafana Status: Acute
[2018-09-13 12:45] VITALS: BP 135/85; PULSE 84; TEMP 97.3; O2SAT 96
--- NOTE | 2018-09-13 13:16 | CP.PCM.DIS ---
Provider - Provider Date of Admission: 09/08/18 13:32 Attending physician: Maninder Sanders MD Primary care physician: Dr. Ramey Consults: 09/08/18 09:15 Stroke Team Consult Stat Comment: Consulting Provider: Neurohospitalist Consulting Physician: NEUROHOLISE Neurohospitalist for Consult: German Villafana Neurohospitalist for Consult: Enrike Coronel Reason for Consult: stroke 09/08/18 13:34 Critical Care Consult Stat Comment: Consulting Provider: Laith Montano V Consulting Physician: Laith Montano V Reason for Consult: CVA 09/08/18 14:55 Neurology Consult Stat Comment: Consulting Provider: Enrike Coronel Consulting Physician: Enrike Coronel Reason for Consult: Acute CVA 09/11/18 10:42 Cardiology Consult Routine Comment: Consulting Provider: Nuno Alvarez Consulting Physician: Nuno Alvarez Reason for Consult: 44 yr old male w/ cva; s/p echo; poss MARIBELL Time Spent in preparation of Discharge (in minutes): 40 Diagnosis - Discharge Diagnosis (1) Acute CVA (cerebrovascular accident) Status: Acute Comment: Resolved (2) ASD (atrial septal defect) Status: Chronic (3) PFO (patent foramen ovale) Status: Chronic Hospital Course - Lab Results Lab Results: Micro Results 09/10/18 16:06 Naris MRSA Culture (Admit) - Final MRSA NOT DETECTED 09/08/18 15:29 Naris MRSA Culture (Admit) - Final MRSA NOT DETECTED Most Recent Lab Values WBC 6.1 K/uL (4.8-10.8) 09/11/18 04:20 RBC 4.94 Mil/uL (4.40-5.90) 09/11/18 04:20 Hgb 14.8 g/dL (12.0-18.0) 09/11/18 04:20 Hct 42.5 % (35.0-51.0) 09/11/18 04:20 MCV 86.1 fl (80.0-94.0) 09/11/18 04:20 MCH 30.0 pg (27.0-31.0) 09/11/18 04:20 MCHC 34.9 g/dL (33.0-37.0) 09/11/18 04:20 RDW 12.6 % (11.5-14.5) 09/11/18 04:20 Plt Count 224 K/uL (130-400) 09/11/18 04:20 MPV 8.3 fl (7.2-11.7) 09/09/18 04:30 Neut % (Auto) 62.0 % (50.0-75.0) 09/09/18 04:30 Lymph % (Auto) 25.8 % (20.0-40.0) 09/09/18 04:30 Holt % (Auto) 9.9 % (0.0-10.0) 09/09/18 04:30 Eos % (Auto) 1.7 % (0.0-4.0) 09/09/18 04:30 Baso % (Auto) 0.6 % (0.0-2.0) 09/09/18 04:30 Neut # (Auto) 3.5 K/uL (1.8-7.0) 09/09/18 04:30 Lymph # (Auto) 1.5 K/uL (1.0-4.3) 09/09/18 04:30 Holt # (Auto) 0.6 K/uL (0.0-0.8) 09/09/18 04:30 Eos # (Auto) 0.1 K/uL (0.0-0.7) 09/09/18 04:30 Baso # (Auto) 0.0 K/uL (0.0-0.2) 09/09/18 04:30 PT 13.6 Seconds (9.8-13.1) H 09/09/18 04:30 INR 1.2 09/09/18 04:30 APTT 32.5 Seconds (25.6-37.1) 09/09/18 04:30 Sodium 140 mmol/l (132-148) 09/11/18 04:20 Potassium 3.8 MMOL/L (3.6-5.0) 09/11/18 04:20 Chloride 100 mmol/L (98-107) 09/11/18 04:20 Carbon Dioxide 27 mmol/L (22-30) 09/11/18 04:20 Anion Gap 17 (10-20) 09/11/18 04:20 BUN 12 mg/dl (9-20) 09/11/18 04:20 Creatinine 1.0 mg/dl (0.8-1.5) 09/11/18 04:20 Est GFR ( Amer) > 60 09/11/18 04:20 Est GFR (Non-Af Amer) > 60 09/11/18 04:20 POC Glucose (mg/dL) 103 mg/dL (65-110) 09/13/18 11:24 Random Glucose 90 mg/dL (75-110) 09/11/18 04:20 Hemoglobin A1c 5.3 % (4.2-6.5) 09/09/18 04:30 Calcium 9.3 mg/dL (8.4-10.2) 09/11/18 04:20 Total Bilirubin 0.7 mg/dl (0.2-1.3) 09/11/18 04:20 AST 22 U/L (17-59) 09/11/18 04:20 ALT 34 U/L (21-72) 09/11/18 04:20 Alkaline Phosphatase 44 U/L (38-126) 09/11/18 04:20 Troponin I < 0.0600 ng/mL (0.00-0.120) 09/08/18 09:27 Total Protein 6.9 G/DL (6.3-8.2) 09/11/18 04:20 Albumin 4.0 g/dL (3.5-5.0) 09/11/18 04:20 Globulin 2.9 gm/dL (2.2-3.9) 09/11/18 04:20 Albumin/Globulin Ratio 1.4 (1.0-2.1) 09/11/18 04:20 Triglycerides 117 mg/DL (0-149) 09/08/18 09:27 Cholesterol 210 mg/dL (0-199) H 09/08/18 09:27 LDL Cholesterol Direct 124 mg/dL (0-129) 09/08/18 09:27 HDL Cholesterol 43 MG/DL (30-70) 09/08/18 09:27 Vitamin B12 354 pg/mL (239-931) 09/09/18 07:29 Homocysteine 8.0 umol/L (6.6-14.8) 09/10/18 05:30 TSH 3rd Generation 2.02 mIU/ML (0.46-4.68) 09/09/18 04:30 Urine Opiates Screen Negative (NEGATIVE) 09/08/18 11:35 Urine Methadone Screen Negative (NEGATIVE) 09/08/18 11:35 Ur Barbiturates Screen Negative (NEGATIVE) 09/08/18 11:35 Ur Phencyclidine Scrn Negative (NEGATIVE) 09/08/18 11:35 Ur Amphetamines Screen Negative (NEGATIVE) 09/08/18 11:35 U Benzodiazepines Scrn Negative (NEGATIVE) 09/08/18 11:35 U Oth Cocaine Metabols Negative (NEGATIVE) 09/08/18 11:35 U Cannabinoids Screen Negative (NEGATIVE) 09/08/18 11:35 Alcohol, Quantitative < 10 mg/dl (0-10) 09/08/18 09:27 Blood Type AB POSITIVE 09/08/18 09:27 Blood Type Confirm AB POSITIVE 09/08/18 10:59 Antibody Screen Negative 09/08/18 09:27 BBK History Checked No verified bt 09/08/18 09:27 - Hospital Course Hospital Course: This is 48 y/o male with no significant PMH admitted to [facility] for evaluation and treatment of acute CVA. Neurology was consulted, MRI brain shows multiple small infarcts in the left frontal lobe and basal ganglia, No hemorrhagic conversion noted. Patient is s/p TPA day 5. Echo was done which showed PFO vs ASD, Cardiology, Dr. Alvarez was consulted and patient is s/p MARIBELL and out patient management for ASD. Patient was started on Aspirin, Plavix and Statin, patient recovered with out any residual deficit/weakness and cleared by PT/ST. Patient is cleared by Cardio/Dr. Alvarez and Neuro/Dr. Villafana/Dr. Coronel for discharge and out patient follow up. As per neuro and cardio: out patient f/u, c/w Eliquis, Lipitor, Aspirin. INSTRUCTIONS: follow up with in 1 week as instructed follow up with Neurology, Dr. Villafana with in 1 month as instructed for labs follow up Continue with Eliquis 10mg twice a day for 7 days then continue 5mg twice a day Continue with Lipitor 20mg daily at night time Continue with Aspirin 81 mg daily Follow up with PMD in 1 week Discharge Exam - Head Exam Head Exam: NORMAL INSPECTION - Eye Exam Eye Exam: Normal appearance Pupil Exam: NORMAL ACCOMODATION - Respiratory Exam Respiratory Exam: Clear to PA & Lateral, NORMAL BREATHING PATTERN. absent: Decreased Breath Sounds, Wheezes, Respiratory Distress - Cardiovascular Exam Cardiovascular Exam: REGULAR RHYTHM, +S1, +S2 - GI/Abdominal Exam GI & Abdominal Exam: Normal Bowel Sounds, Soft. absent: Distended, Tenderness - Extremities Exam Extremities exam: normal capillary refill, normal inspection, pedal pulses present - Back Exam Back exam: absent: CVA tenderness (L), CVA tenderness (R) - Neurological Exam Neurological exam: Alert, CN II-XII Intact, Normal Gait, Oriented x3, Reflexes Normal Additional comments: Motor/Sensory intact 5/5/ in UEs and LEs No aphasia No pronator drift - Psychiatric Exam Psychiatric exam: Normal Affect - Skin Skin Exam: Normal Color Discharge Plan - Discharge Medications Prescriptions: Apixaban [Eliquis] 10 mg PO BID 7 Days #14 tablet Apixaban [Eliquis] 5 mg PO BID #30 tab Aspirin [Ecotrin] 81 mg PO DAILY #30 tabec Atorvastatin [Lipitor] 20 mg PO DAILY 30 Days tab - Follow Up Plan Condition: CRITICAL Disposition: HOME/ ROUTINE Instructions: Stroke, Stroke (DC), Recovery After Stroke, Stroke Rehab Information, Atrial Septal Defect in Adults Additional Instructions: follow up with in 1 week as instructed follow up with Neurology, Dr. Villafana with in 1 month as instructed for labs follow up Continue with Eliquis 10mg twice a day for 7 days then continue 5mg twice a day Continue with Lipitor 20mg daily at night time Continue with Aspirin 81 mg daily Follow up with PMD in 1 week Referrals: Jarvis Ramey MD [Non-Staff] - Nuno Alvarez MD [Staff Provider] - Enrike Coronel MD [Medical Doctor] - German Villafana MD [Medical Doctor] -
[2018-09-13 17:42] LABS: METHYLMALONIC ACID,SERUM 103 nmol/L (87-318)
--- NOTE | 2018-09-13 18:09 | CP.PCM.PN ---
Subjective - Date & Time of Evaluation Date of Evaluation: 09/13/18 Time of Evaluation: 06:00 - Subjective Subjective: Pt seen and examined this morning. Pt denies chest pain, SOB or trouble swallowing. Objective - Vital Signs/Intake and Output Vital Signs (last 24 hours): Temp Pulse Resp BP Pulse Ox 97.3 F L 84 18 135/85 96 09/13/18 12:43 09/13/18 12:43 09/13/18 12:43 09/13/18 12:43 09/13/18 12:43 - Labs Labs: 09/11/18 04:20 09/11/18 04:20 PT 13.6 Seconds (9.8-13.1) H 09/09/18 04:30 INR 1.2 09/09/18 04:30 APTT 32.5 Seconds (25.6-37.1) 09/09/18 04:30 - Constitutional Appears: No Acute Distress - Head Exam Head Exam: ATRAUMATIC, NORMOCEPHALIC - Eye Exam Eye Exam: EOMI - ENT Exam ENT Exam: Mucous Membranes Moist - Neck Exam Neck Exam: Full ROM - Respiratory Exam Respiratory Exam: Clear to Ausculation Bilateral, NORMAL BREATHING PATTERN. absent: Accessory Muscle Use - Cardiovascular Exam Cardiovascular Exam: +S1, +S2. absent: Diastolic murmur, Murmur - GI/Abdominal Exam GI & Abdominal Exam: Soft, Normal Bowel Sounds. absent: Tenderness - Extremities Exam Extremities Exam: Full ROM - Neurological Exam Neurological Exam: Alert, Awake, Oriented x3 - Psychiatric Exam Psychiatric exam: Normal Affect, Normal Mood - Skin Skin Exam: Dry, Intact, Warm Assessment and Plan - Assessment and Plan (Free Text) Assessment: (1) PFO with atrial septal aneurysm Status: Acute (2) Acute CVA (cerebrovascular accident) Status: Acute Plan: ECHO 09/08/18 showed possible PFO/ASD ECHO 09/11/18 ASA, eliquis 10 BID for 7 days, then 5mg BID pt to follow up as an out pt in 1 week Pt seen, examined, assessment and plan discussed with Dr Antonio Olson PGY1, Internal Medicine Resident
--- NOTE | 2018-09-14 13:11 | PQF ---
PROVIDER RESPONSE TEXT: Stroke consistent with ischemia at the left frontal lobe. REVIEWER QUERY TEXT: Stroke Specificity Stroke is documented in the Medical Record. Please specify the type, the vessel involved and location Such as: Vessel: -- Cerebral artery (please specify as anterior, cerebellar, middle, posterior) -- Precerebral artery (basilar, carotid, vertebra) -- Other, please specify Type: -- Cerebral venous thrombosis -- Embolism -- Hemorrhage (non-traumatic) -- Occlusion or stenosis -- Other, please specify Location of non-traumatic hemorrhage such as: -- Intracerebral -- Intracranial -- Subarachnoid -- Subdural -- Other, please specify The patient's Clinical Indicators include: xx Query created by: Jenna Jha on 09/14/2018 12:01 PM Electronically signed by: Maninder Sanders 09/14/2018 1:08 PM
[2018-09-15 01:40] LABS: B2 GLYCOPROTEIN I AB(IGA) <9 SAU (<=20); B2 GLYCOPROTEIN I AB(IGG) <9 SGU (<=20); B2 GLYCOPROTEIN I AB(IGM) <9 SMU (<=20)
[2018-09-15 07:27] LABS: CARDIOLIPIN AB (IGA) <11 APL (<=11); CARDIOLIPIN AB (IGG) <14 GPL (<=14); CARDIOLIPIN AB (IGM) <12 MPL (<=12)
[2018-09-15 08:16] LABS: CARDIOLIPIN AB (IGA) <11 APL (<=11)
[2018-09-15 22:46] LABS: PHOSPHATIDYLSERINE AB IGA <20 U/mL (<20); PHOSPHATIDYLSERINE AB IGG <10 U/mL (<10); PHOSPHATIDYLSERINE AB IGM <25 U/mL (<25)
[2018-09-18 15:59] LABS: DRVVT CONFIRM Negative
--- NOTE | 2018-09-26 21:50 | CARD ---
APPROVED REPORT Date of service: 09/12/2018 EXAM: Transesophageal echocardiogram with color flow Doppler. INDICATION ASD Reason For Test : Rule out cardiac source of emboli. PROCEDURE After obtaining informed consent, patient underwent transesophageal echo in the Echo Lab. Type of Sedation : Conscious Sedation Sedation was administered by MD . Sedation was achieved with Versed, fentanyl intravenously. Transesophageal probe was inserted and advanced into esophagus without difficulty. Echo enhancement indication: R/O Septal defect. Echo enhancement agent administered: Agitated Saline The MARIBELL was performed without complications. Throughout the procedure, the blood pressure, pulse oximetry, cardiac rhythm, and rate were monitored. The patient tolerated the procedure without adverse effects. Recovery from conscious sedation was uneventful and vital signs were stable. LEFT VENTRICLE The left ventricle is normal size. There is normal left ventricular wall thickness. The left ventricular function is normal. The left ventricular ejection fraction is within the normal range. LVEF is 60-65%. There is normal LV segmental wall motion. Transmitral Doppler flow pattern is Grade I-abnormal relaxation pattern. No left ventricle thrombus noted on this study. There is no ventricular septal defect visualized. There is no left ventricular aneurysm. RIGHT VENTRICLE The right ventricle is normal size. There is normal right ventricular wall thickness. The right ventricular systolic function is normal. ATRIA The left atrium size is normal. The right atrium size is normal. Atrial septal aneurysm with patent foramen ovale is present and there is high risk for embolism. AORTIC VALVE The aortic valve is normal in structure. No aortic regurgitation is present. There is no aortic valvular stenosis. There is no aortic valvular vegetation. MITRAL VALVE The mitral valve is normal in structure. There is no evidence of mitral valve prolapse. There is no mitral valve stenosis. There is no mitral valve regurgitation noted. TRICUSPID VALVE The tricuspid valve is normal in structure. There is no tricuspid valve regurgitation noted. There is no tricuspid valve prolapse or vegetation. There is no tricuspid valve stenosis. PULMONIC VALVE The pulmonary valve is normal in structure. There is no pulmonic valvular regurgitation. There is no pulmonic valvular stenosis. GREAT VESSELS The aortic root is normal in size. The IVC is normal in size and collapses >50% with inspiration. PERICARDIAL EFFUSION The pericardium appears normal. <Conclusion> Atrial septal aneurysm with patent foramen ovale is present and there is high risk for embolism.
== END 2018-09-13 15:00 | disposition home or self-care (01) | DRG 62 ==
LOC: H.ER 09:06 → H.ERHOLD 13:32 → H.ICU/CCU 17:25 → H.TEL 09-10 10:51 → H.ICU/CCU 09-10 12:44 → H.TEL 09-10 14:13
PROVIDERS: ADMIT Internal Medicine; ATTEND Internal Medicine
PROC: 3E03317 Introduction of Other Thrombolytic into Peripheral Vein, Percutaneous Approach (ICD-10-PCS; principal; 2018-09-08)
PROC: B246ZZ4 Ultrasonography of Right and Left Heart, Transesophageal (ICD-10-PCS; 2018-09-12)
DX: I63.89 Other cerebral infarction (principal); Q21.1 Atrial septal defect; R47.01 Aphasia; R47.1 Dysarthria and anarthria; R29.810 Facial weakness; G83.21 Monoplegia of upper limb affecting right dominant side; R29.701 NIHSS score 1